=== PATIENT | male | born 1945 | race Caucasian/White ===

== ENCOUNTER 2019-08-30 09:52 | Emergency (ER) | payer MEDICARE, OTHER ==
[~2019-08-30] VITALS: Ht 180.3 cm; Wt 95.0 kg
[~2019-08-30 09:52] MED LIST: ALBU0.63 NEB; ASPI325T11 PO; BUDE10.2 IH; BUPR100T8 PO; CARB1DRO20 EACHEYE; CEPH-264 PO; CHOL200059 PO; GABA600T7 PO; GLIP5TAB22 PO; HYDR12.575 PO; PRED20TA PO; SIMV80TA17 PO; TAMS0.4C97 PO; TIOT18CA IH; VALS80TA3 PO; ZOLP10TA4 PO
--- NOTE | 2019-08-30 10:23 | EKG ---
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
[2019-08-30 10:36] LABS: BASO # 0.1 x10^3/uL (0.0-0.2); BASO % 1 % (0-3); EOS # 0.4 x10^3/uL (0.0-0.7); EOS % 5 % (0-3); HEMATOCRIT 41.3 % (39.0-53.0); HEMOGLOBIN 13.8 g/dL (13.0-17.5); LYMPH % 11 % (24-48); MEAN CORPUSCULAR HEMOGLOBIN 28 pg (25-35); MEAN CORPUSCULAR HGB CONC 33 g/dL (31-37); MEAN CORPUSCULAR VOLUME 83 fL (79-100); MONO % 11 % (0-9); NEUT % 73 % (31-73); PLATELET COUNT 258 x10^3/uL (140-400); RED BLOOD COUNT 4.96 x10^6/uL (4.30-5.70); RED CELL DISTRIBUTION WIDTH 14.8 % (11.5-14.5); WHITE BLOOD COUNT 9.5 x10^3/uL (4.0-11.0)
[2019-08-30] MEDS ORDERED: IPRATRPIUM/ALBUTEROL 0.5/2.5MG 3 ML NEBU. NEB ONE (10:45)
[2019-08-30] MEDS ORDERED: DEXAMETHASONE SOD PHOS 4 MG/ML VIAL IVP ONE (10:45)
[2019-08-30 10:46] LABS: PROTHROMBIN TIME PATIENT 14.5 SEC (11.7-14.0)
[2019-08-30 11:02] LABS: CALCIUM 9.2 mg/dL (8.5-10.1); CREATININE 1.1 mg/dL (0.7-1.3); GFR 65.8; POTASSIUM 4.3 mmol/L (3.5-5.1)
[2019-08-30 11:06] LABS: ALBUMIN 3.3 g/dL (3.4-5.0); ALBUMIN/GLOBULIN RATIO 0.9 (1.0-1.7); MAGNESIUM 1.7 mg/dL (1.8-2.4); TOTAL BILIRUBIN 1.5 mg/dL (0.2-1.0)
--- NOTE | 2019-08-30 11:12 | RAD ---
Chest, PA and Lateral: Technique: PA and lateral views of the chest were obtained. History: Cough. Comparison: 08/05/2019. Findings: The heart and pulmonary vasculature appear within normal limits. Median sternotomy wires identified.. Mild airspace opacity identified in the right middle lobe of the lung likely atelectasis or infiltrates.. Impression: Mild airspace opacity identified in the right middle lobe lung likely atelectasis or infiltrate. Follow-up to resolution.. Electronically signed by: Meño Flores MD (08/30/2019 11:09 AM) [id number]
--- NOTE | 2019-08-30 11:20 | PHYS DOC ---
Past Medical History Past Medical History: CAD, COPD, Diabetes-Type II, High Cholesterol, Heart Disease, Hypertension, [place] Past Surgical History: Coronary Bypass Surgery, Other Additional Past Surgical Histo: CABG X4 w/ Aortic Valve Replacement 2010 Smoking Status: Former Smoker Additional Information: quit smoking 5 years ago Alcohol Use: None Drug Use: None Adult General Chief Complaint Chief Complaint: SHORTNESS OF BREATH HPI HPI Patient is a 74 year old male with history of COPD who presents with cough and shortness of breath. His symptoms have worsened over the past few days. He is on 2L home oxygen and has increased oxygen to 2.5 L over the past few days due to worsening symptoms. Cough is sometimes productive of yellow or clear sputum. He also reports that he has had increased weakness over the past few days. He denies fevers, chills, chest pain, palpitations, nausea, or vomiting. He also denies calf pain or leg swelling. He originally began having symptoms in July. The cough and shortness of breath will intermittently get better, but never fully resolve. He has been hospitalized 2 times over the past month for these symptoms. He was recently hospitalized at [facility] in July and treated for COPD exacerbation. He has not been around any sick contacts or travelled recently. He received his flu vaccine this year. Review of Systems Review of Systems Constitutional: Denies fever or chills Eyes: Denies redness or eye pain HENT: Denies nasal congestion or sore throat Respiratory: Reports cough and shortness of breath Cardiovascular: Denies chest pain or palpitations GI: Denies abdominal pain, nausea, or vomiting : Denies dysuria or hematuria Musculoskeletal: Denies back pain, joint pain, and calf pain Integument: Denies rash or skin lesions Neurologic: Denies headache, focal weakness or sensory changes Complete systems were reviewed and found to be within normal limits, except as documented in this note. Family History Family History No pertinent family history. Current Medications Current Medications Current Medications Medications (Trade) Dose Ordered Sig/Magdalena Start Time Stop Time Status Last Admin Dose Admin Albuterol/ Ipratropium (Duoneb) 3 ml 1X ONCE 08/30/19 10:45 08/30/19 10:46 DC 08/30/19 12:15 3 ML Dexamethasone Sodium Phosphate (Decadron) 10 mg 1X ONCE 08/30/19 10:45 08/30/19 10:46 DC 08/30/19 10:56 10 MG Magnesium Chloride (Mag Delay) 64 mg 1X ONCE 08/30/19 12:00 08/30/19 12:01 DC 08/30/19 12:12 64 MG Allergies Allergies Allergies Coded Allergies Type Severity Reaction Last Updated Verified No Known Drug Allergies 08/05/19 No Physical Exam Physical Exam Constitutional: Well developed, well nourished, no acute distress, non-toxic appearance HENT: Normocephalic, atraumatic Eyes: EOMI, conjunctiva normal, no discharge Neck: Normal range of motion, supple Cardiovascular: Heart rate normal, regular rhythm Lungs & Thorax: Diminished lung sounds, Wheezing of bilateral lung sweet Abdomen: Soft, no tenderness Skin: Warm, dry, no erythema, no rash Extremities: No tenderness, ROM intact, no edema, no calf tenderness Neurologic: Alert and oriented X 3, normal motor function, normal sensory function, no focal deficits noted Psychologic: Affect normal, judgment normal Current Patient Data Vital Signs Vital Signs Date Time Temp Pulse Resp B/P (MAP) Pulse Ox O2 Delivery O2 Flow Rate FiO2 08/30/19 13:34 74 20 130/76 (94) 95 Nasal Cannula 2.0 08/30/19 10:01 98.3 98.3 Lab Values Laboratory Tests Test 08/30/19 10:15 08/30/19 11:02 White Blood Count 9.5 x10^3/uL (4.0-11.0) Red Blood Count 4.96 x10^6/uL (4.30-5.70) Hemoglobin 13.8 g/dL (13.0-17.5) Hematocrit 41.3 % (39.0-53.0) Mean Corpuscular Volume 83 fL (79-100) Mean Corpuscular Hemoglobin 28 pg (25-35) Mean Corpuscular Hemoglobin Concent 33 g/dL (31-37) Red Cell Distribution Width 14.8 % (11.5-14.5) H Platelet Count 258 x10^3/uL (140-400) Neutrophils (%) (Auto) 73 % (31-73) Lymphocytes (%) (Auto) 11 % (24-48) L Monocytes (%) (Auto) 11 % (0-9) H Eosinophils (%) (Auto) 5 % (0-3) H Basophils (%) (Auto) 1 % (0-3) Neutrophils # (Auto) 7.0 x10^3/uL (1.8-7.7) Lymphocytes # (Auto) 1.0 x10^3/uL (1.0-4.8) Monocytes # (Auto) 1.0 x10^3/uL (0.0-1.1) Eosinophils # (Auto) 0.4 x10^3/uL (0.0-0.7) Basophils # (Auto) 0.1 x10^3/uL (0.0-0.2) Prothrombin Time 14.5 SEC (11.7-14.0) H Prothrombin Time INR 1.2 (0.8-1.1) H Activated Partial Thromboplast Time 34 SEC (24-38) Sodium Level 136 mmol/L (136-145) Potassium Level 4.3 mmol/L (3.5-5.1) Chloride Level 97 mmol/L (98-107) L Carbon Dioxide Level 29 mmol/L (21-32) Anion Gap 10 (6-14) Blood Urea Nitrogen 15 mg/dL (8-26) Creatinine 1.1 mg/dL (0.7-1.3) Estimated GFR (Cockcroft-Gault) 65.8 BUN/Creatinine Ratio 14 (6-20) Glucose Level 82 mg/dL (70-99) Lactic Acid Level 1.1 mmol/L (0.4-2.0) Calcium Level 9.2 mg/dL (8.5-10.1) Magnesium Level 1.7 mg/dL (1.8-2.4) L Total Bilirubin 1.5 mg/dL (0.2-1.0) H Aspartate Amino Transferase (AST) 13 U/L (15-37) L Alanine Aminotransferase (ALT) 17 U/L (16-63) Alkaline Phosphatase 92 U/L (46-116) Creatine Kinase 40 U/L (39-308) Creatine Kinase MB (Mass) < 0.5 ng/mL (0.0-3.6) Creatine Kinase MB Relative Index % (0-4) Troponin I Quantitative < 0.017 ng/mL (0.000-0.055) XB-Jnx-U-Type Natriuretic Peptide 474 pg/mL (0-124) H Total Protein 7.0 g/dL (6.4-8.2) Albumin 3.3 g/dL (3.4-5.0) L Albumin/Globulin Ratio 0.9 (1.0-1.7) L Influenza Type A Antigen Negative (NEGATIVE) Influenza Type B Antigen Negative (NEGATIVE) Laboratory Tests 08/30/19 10:15 Laboratory Tests 08/30/19 10:15 EKG EKG @1005 EKG showed atrial flutter vs. sinus rhythm with heart rate of 79 bpm, difficult to evaluate due to artifact. No acute ST segment changes. @1250 showed sinus rhythm with heart rate of 75 bpm with no acute ST segment changes Radiology/Procedures Radiology/Procedures CHEST PA & LATERAL Chest, PA and Lateral: Technique: PA and lateral views of the chest were obtained. History: Cough. Comparison: 08/05/2019. Findings: The heart and pulmonary vasculature appear within normal limits. Median sternotomy wires identified.. Mild airspace opacity identified in the right middle lobe of the lung likely atelectasis or infiltrates.. Impression: Mild airspace opacity identified in the right middle lobe lung likely atelectasis or infiltrate. Follow-up to resolution. Electronically signed by: Meño Flores MD (08/30/2019 11:09 AM) [id number] Course & Med Decision Making Course & Med Decision Making Pertinent Labs and Imaging studies reviewed. (See chart for details) Patient is a 74 year old male presenting to the ED with cough and shortness of breath that he has had for about a month, but has been worsening over the past few days. He has a history of COPD. EKG @1005 showed atrial flutter vs. sinus rhythm with heart of 79 bpm, unable to distinguish due to artifact. CXR performed and showed mild airspace opacity in the right middle lobe lung likely atelectasis or infiltrate. Patient did not have leukocytosis. Troponin was within normal limits, BNP was 474, lactic acid 1.1. Mg was 1.7 and was replaced. Flu was negative. Dexamethasone and Duoneb given in the ED. Repeat EKG after DuoNeb @1250 showed sinus rhythm with heart rate of 75 bpm with no acute ST segment changes. Spacer for home albuterol rescue inhaler was provided. Prescription for steroid and Guaifenesin with codeine was given. Patient stable for discharge with outpatient follow-up with PCP/Pulmonology. Discussed findings and plan with patient and family, who acknowledge understanding and agreement. Pulmonology referral was provided. Dragon Disclaimer Dragon Disclaimer This electronic medical record was generated, in whole or in part, using a voice recognition dictation system. Departure Departure Impression: Primary Impression: COPD exacerbation Disposition: 01 HOME, SELF-CARE Condition: STABLE Referrals: NO PCP (PCP) ESTUARDO ALMEIDA MD Patient Instructions: Chronic Obstructive Pulmonary Disease Exacerbation, Mdep-mq-Ihrp Scripts Guaifenesin/Codeine Phosphate (Codeine-Guaifen 10-100 mg/5 ml) 120 Ml Liquid 10 ML PO Q8HRS PRN for COUGH, #200 LIQUID Prov: YAZMIN JULES DO 08/30/19 Prednisone (PREDNISONE) 20 Mg Tablet 2 TAB PO DAILY, #8 TAB Start this prescription tomorrow, Thu08/31/19 Prov: YAZMIN JULES DO 08/30/19 YAZMIN JULES DO Aug 30, 2019 11:19
[2019-08-30 11:26] LABS: CREATINE KINASE 40 U/L (39-308)
[2019-08-30] MEDS ORDERED: MAGNESIUM CHLORIDE ER 64 MG TABLET.ER PO ONE (12:00)
[2019-08-30 12:02] LABS: INFLUENZA A PATIENT NEGATIVE (NEGATIVE); INFLUENZA B PATIENT NEGATIVE (NEGATIVE)
[2019-08-30] MEDS ORDERED: PRED20TA PO (12:59)
[2019-08-30] MEDS ORDERED: GUAI120L35 PO (12:59)
--- NOTE | 2019-08-30 13:20 | EKG ---
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
[2019-08-30 13:34] VITALS: BP 130/76
== END 2019-08-30 13:40 | disposition home or self-care (01) ==
LOC: ER 09:52
DX: J44.1 Chronic obstructive pulmonary disease with (acute) exacerbation (principal); E78.00 Pure hypercholesterolemia, unspecified; I11.9 Hypertensive heart disease without heart failure; I25.10 Atherosclerotic heart disease of native coronary artery without angina pectoris; I25.2 Old myocardial infarction; Z87.891 Personal history of nicotine dependence; Z95.1 Presence of aortocoronary bypass graft
CPT/HCPCS: 36415; 71046; 80053; 82553; 83605; 83735; 83880; 84484; 85025; 85610; 85730; 87804; 93005; 94640; 96374; 99285; J1100; J7620

== ENCOUNTER → 2019-09-06 | Outpatient (CLI) | payer MEDICARE ==
[2019-08-30 13:34] VITALS: BP 130/76
[~2019-09-06] MED LIST changes: +GUAI120L35 PO; +REGADENOSON 0.4 MG/5 ML DISP.SYRIN. IV ONE
--- NOTE | 2019-09-06 10:51 | CARD ---
MR#: [id number] Date of Study: 09/06/2019 Ordering Physician: EYAD BEAR, Referring Physician: EYAD BEAR Tech: Gavino Howard [facility] APPROVED REPORT EXAM: Two-dimensional and M-mode echocardiogram with Doppler and color Doppler. Other Information Quality : AverageHR: 83bpm Rhythm : Atrial Fibrillation INDICATION Arrhythmia Atrial Fibrillation CAD CABG 2D DIMENSIONS Left Atrium(2D)4.7 (1.6-4.0cm)IVSd1.4 (0.7-1.1cm) Aortic Root(2D)3.7 (2.0-3.7cm)LVDd3.8 (3.9-5.9cm) LVOT Diameter2.0 (1.8-2.4cm)PWd1.4 (0.7-1.1cm) LVDs2.9 (2.5-4.0cm)FS (%) 23.1 % SV29.0 mlLVEF(%)47.1 (>50%) Aortic Valve AoV Peak Xavi.239.5cm/sAoV VTI43.0cm AO Peak GR.23.0mmHgLVOT Peak Xavi.98.5cm/s AO Mean GR.12mmHgAVA (VMAX)1.33cm2 Mitral Valve MV E Peak Gr.14mmHgMV E Mean Gr.4mmHg Pulmonary Valve PV Peak Ywzglnvp635.3cm/s Tricuspid Valve TR P. Hebeebyd558sk/sRAP [id number] TR Peak Gr.74kmUuWAIP44zpXk LEFT VENTRICLE The left ventricle is normal size. There is mild to moderate concentric left ventricular hypertrophy. The systolic function is low normal. The Ejection Fraction is 50%. Septal motion suggestive of condu ction defect. Mild global hypokinesis. Tissue Doppler imaging reveals moderate left ventricular diast olic dysfunction. RIGHT VENTRICLE The right ventricle is normal size. There is normal right ventricular wall thickness. The right ventr icular systolic function is normal. ATRIA The left atrium size is normal. The right atrium size is normal. The interatrial septum is intact wit h no evidence for an atrial septal defect or patent foramen ovale as noted on 2-D or Doppler imaging. AORTIC VALVE The aortic valve is moderately sclerotic. No aortic regurgitation is present. There is mild valvular aortic stenosis. Calculated aortic valve area is 1.3 cm2 with maximum pressure gradient of 23 mmHg an d mean pressure gradient of 12 mmHg. There is no aortic valvular vegetation. MITRAL VALVE The mitral valve is normal in structure and function. There is no evidence of mitral valve prolapse. There is no mitral valve stenosis. Doppler and Color-flow revealed mild mitral regurgitation. TRICUSPID VALVE The tricuspid valve is normal in structure and function. Doppler and Color Flow revealed mild tricusp id regurgitation with PAP of 32 mmHg. There is no tricuspid valve prolapse or vegetation. There is no tricuspid valve stenosis. PULMONIC VALVE There is no pulmonic valvular regurgitation. There is no pulmonic valvular stenosis. GREAT VESSELS The aortic root is normal in size. The ascending aorta is normal in size. The IVC is normal in size a nd collapses >50% with inspiration. PERICARDIAL EFFUSION There is no pleural effusion. There is no evidence of significant pericardial effusion. Critical Notification Critical Value: No <Conclusion> The systolic function is low normal. The Ejection Fraction is 50%. Septal motion suggestive of conduction defect. Mild global hypokinesis. There is mild valvular aortic stenosis. Calculated aortic valve area is 1.3 cm2 with maximum pressur e gradient of 23 mmHg and mean pressure gradient of 12 mmHg. Signed by : Yoni Ponce, Electronically Approved : 09/06/2019 10:51:27
--- NOTE | 2019-09-06 15:07 | RAD ---
MR#: [id number] Date of Study: 09/06/2019 Ordering Physician: SIN WALKER, Referring Physician: [place] Tech: FRANKLNI Payton APPROVED REPORT Test Type: Pharmacological Stress Nurse/Tech: ROBERT JACOB Test Indications: CARDIAC ARRYTHMIA Cardiac History: See Electronic Medical , CABG, HTN, AFIB Medications: See Electronic Medical Record Medical History: See Electronic Medical Record Resting ECG: AFIB Resting Heart Rate: 84 bpm Resting Blood Pressure: 134/59mmHg Pretest Chest Pain: No chest pain Nurse/Tech Notes IRREGULAR RATE, LUNGS DIMINISHED @ BASES, COUGH + Consent: The procedure was explained to the patient in lay terms. Informed consent was witnessed. Hamzah eout was entered into [employer]. History and Stress Test performed by FRANKLIN Payton Pharm. Details Pharmacologic stress testing was performed using 0.4mg per 5ml of regadenoson given intravenously ove r 7-10 seconds. Stress Symptoms PT C/O OF "SLIGHT HEAVINESS IN HIS CHEST", WHEN MED INJECTED INITIALLY, SENSATION SUBSIDED AFTER A CO UPLE OF MINUTES. POST EXERCISE Reason for Termination: Infusion complete Max HR: 102 bpm Max Blood Pressure: 121/53mmHg Blood Pressure response to exercise: Normal blood pressure response during stress. Heart Rate response to exercise: NORMAL HEART RATE RESPONSE DURING STRESS Chest Pain: . DESCRIBED "HEAVINESS", NOT PAIN Arrhythmia: Yes. AFIB/ PVC'S NOTED ST Change: No. INTERPRETATION Stress EKG Conclusion: No evidence of stress induced EKG changes. Imaging Protocol IMAGE PROTOCOL: Rest Tc-99m/stress Tc-99m 1 day Rest: Stress: Viability: Radiopharm.Tc99m EeqimugffZm06a Sestamibi Rekx78oNl 31mCi Duration 15min. 12min. Img Date 09/06/2019 09/06/2019 Inj-Img [id number]. 60min. Rest Admin Site:IV - Right AntecubitalAdministrator:RT Lashanda (R)(N) Stress Admin Site: IV - Right AntecubitalAdministrator: Yaz Parra, RT (R)(N) STRESS DATA End Diast. Vol.116.0mlLVEDV index BSA53.0ml End Syst. Vol.53.0mlLVESV index BSA24.0ml Myocardial Hqgh710.0gEject. Ocitkkge14.0% Stress Scores Regional WT2.00Summed WT19.00 Regional WM0.00Summed WM19.00 LV Perfusion Moderate to large sized, predominantly FIXED basal to distal inferior and inferolateral wall suggesti ve of prior infarct without ongoing ischemia. Wall Motion Mild inferolateral hypokinesis. LV Perf. Quant 17 Seg. SSS11.00 17 Seg. SRS13.00 17 Seg. SDS0.00 Stress Defect Extent (% LAD)14.40Rest Defect Extent (% LAD)19.40Rev. Defect Extent (% LAD)0.00 Stress Defect Extent (% LCX) 35.00Rest Defect Extent (% LCX)33.80Rev. Defect Extent (% LCX)0.00 Stress Defect Extent (% RCA)6.70Rest Defect Extent (% RCA)23.30Rev. Defect Extent (% RCA)0.00 Stress Defect Extent (% STEVAN)20.40Rest Defect Extent (% STEVAN)26.10Rev. Defect Extent (% STEVAN)0.00 Other Information Quality:Average Risk Assessment: Moderate Risk Conclusion 1. No evidence of stress induced EKG changes. 2. 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 3. Mild LV dysfunction with EF of 50% 4. Moderate risk study Signed by : Yoni Ponce, Electronically Approved : 09/06/2019 15:06:25
== END | disposition home or self-care (01) ==
LOC: NM 08:51
PROVIDERS: ATTEND Internal Medicine Cardiovascular Disease
DX: I08.3 Combined rheumatic disorders of mitral, aortic and tricuspid valves (principal); I48.91 Unspecified atrial fibrillation; I10 Essential (primary) hypertension; I25.810 Atherosclerosis of coronary artery bypass graft(s) without angina pectoris; Z95.1 Presence of aortocoronary bypass graft
CPT/HCPCS: 78452; 93017; 93306; A9500; J2785

== ENCOUNTER 2019-10-02 03:57 | Inpatient (IN) | payer MEDICARE ==
[2019-10-02] VITALS (20 sets, daily range): BP systolic 66–126; BP diastolic 43–69
[~2019-10-02] VITALS: Ht 182.9 cm; Wt 87.9 kg
[~2019-10-02 03:57] MED LIST changes: +AMOX1TAB58 PO; +DOCU-153 PO; +LACT1CAP19 PO; +PRED50TA PO; +PROP80CA3 PO; -REGADENOSON 0.4 MG/5 ML DISP.SYRIN. IV ONE
[2019-10-02] MEDS ORDERED: MIDAZOLAM HCL 50 MG in IV NORMAL SALINE 50ML 50 ML IV ONE (04:30)
[2019-10-02] MEDS ORDERED: VANCOMYCIN PER PHARMACY MC ONE (04:45)
[2019-10-02] MEDS ORDERED: ACETAMINOPHEN 650 MG SUPP.RECT. PR ONE (05:00)
[2019-10-02] MEDS ORDERED: IV NORMAL SALINE 1000ML BAG 1,000 ML IV SCH (05:00)
[2019-10-02] MEDS ORDERED: PIPERACILLIN/TAZOBACTAM 4.5 GM in IV NORMAL SALINE 100ML 100 ML IV ONE (05:00)
[2019-10-02] MEDS ORDERED: dilTIAZem IV PUSH 25 MG/5 ML VIAL IVP ONE (05:00)
[2019-10-02] MEDS ORDERED: dilTIAZem INJ 125 MG in IV NORMAL SALINE 100ML 100 ML IV ONE (05:00)
--- NOTE | 2019-10-02 05:07 | PHYS DOC ---
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 Was curriculum assistant principal a member of the P: No If suspected infection: Yes Central Line Indications: Monitor CVP Maximal sterile barriers used: Mask, Sterile gown, Sterile gloves, Large sterile drape, Cap Skin Preperation: (Check all: Chlorhexidine gluconate Was skin prep dry at time of s: Yes Patient is less than 2 months: No Patient has documented/known a: No Facility restrictions/safety c: No Insertion Site: Jugular Antimicrobial catheter used?: No Central Line catheter type: Non-tunneled Did this insertion attempt res: No Adult General Chief Complaint Chief Complaint: DYSPNEA/RESPIRATOY DISTRESS HPI HPI 74-year-old male presents to the emergency department via EMS with severe respiratory distress. Patient has underlying history of hypertension, hyperlipidemia, diabetes, COPD. Patient was seen at approximately 10 days ago, tested positive for coronavirus, patient was discharged on Thursday. He presents today with severe respiratory distress, initial saturations in the 50s, patient was being bagged per via BVM upon arrival. Unable to get IV established, saturations in the 60s to 70s upon arrival, patient agitated. Heart rate in the 170s. Patient febrile 100.5. Patient unable to provide history. Upon arrival, patient being bagged, not forming complete sentences, it was milton cted at that time given hypoxia and agitation patient was electively intubated. See intubation note Review of Systems Review of Systems Constitutional: Fevers Respiratory: Cough shortness of breath Cardiovascular: No additional information not addressed in HPI [] All other systems were reviewed and found to be within normal limits, except as documented in this note. Current Medications Current Medications Current Medications Medications (Trade) Dose Ordered Sig/Magdalena Start Time Stop Time Status Last Admin Dose Admin Acetaminophen (Tylenol Supp) 650 mg 1X ONCE 10/02/19 05:00 10/02/19 05:01 DC 10/02/19 05:15 650 MG Diltiazem HCl (Cardizem Iv Push) 10 mg 1X ONCE 10/02/19 05:00 10/02/19 05:01 DC 10/02/19 05:05 10 MG Diltiazem HCl 125 mg/Sodium Chloride 125 ml @ 5 mls/hr 1X ONCE 10/02/19 05:00 10/03/19 05:59 10/02/19 05:09 5 MLS/HR Heparin Sodium/ Dextrose 250 ml @ 0 mls/hr CONT PRN 10/02/19 05:45 Levofloxacin/ Dextrose 150 ml @ 100 mls/hr 1X ONCE 10/02/19 05:00 10/02/19 06:29 Midazolam HCl 50 mg/Sodium Chloride 50 ml @ 0 mls/hr 1X ONCE 10/02/19 04:30 10/02/19 04:31 DC 10/02/19 04:49 1 MLS/HR Norepinephrine Bitartrate 8 mg/ Dextrose 258 ml @ 0 mls/hr CONT PRN 10/02/19 05:00 Piperacillin Sod/ Tazobactam Sod 4.5 gm/Sodium Chloride 100 ml @ 200 mls/hr 1X ONCE 10/02/19 05:00 10/02/19 05:29 DC 10/02/19 05:25 200 MLS/HR Sodium Chloride 1,000 ml @ 2,340 mls/hr Q26M 10/02/19 05:00 10/02/19 06:00 10/02/19 05:15 2,340 MLS/HR Vancomycin HCl (Vanco Per Pharmacy) 1 each 1X ONCE 10/02/19 04:45 10/02/19 04:46 UNV Vancomycin HCl 1.25 gm/Sodium Chloride 250 ml @ 166.667 mls/hr 1X ONCE 10/02/19 05:30 10/02/19 06:59 Cancel Vancomycin HCl 2 gm/Sodium Chloride 500 ml @ 250 mls/hr 1X ONCE 10/02/19 05:30 10/02/19 07:29 Allergies Allergies Allergies Coded Allergies Type Severity Reaction Last Updated Verified No Known Drug Allergies 08/05/19 No Physical Exam Physical Exam Constitutional: Patient being bagged, severe respiratory distress, unable to speak in complete sentences HENT: Normocephalic, atraumatic, bilateral external ears normal, oropharynx mois t, no oral exudates, nose normal. [] Eyes: PERRLA, EOMI, conjunctiva normal, no discharge. [] Cardiovascular: Sinus tachycardia Lungs & Thorax: Decreased breath sounds bilaterally, tachypnea Abdomen: Bowel sounds normal, soft, no tenderness, no masses, no pulsatile masses. [] Skin: Warm, dry, no erythema, no rash. [] Back: No tenderness, no CVA tenderness. [] Extremities: No tenderness, no edema. [] Neurologic: Alert and oriented X 3, normal motor function, normal sensory function, no focal deficits noted. [] Psychologic: Anxious Current Patient Data Vital Signs Vital Signs Date Time Temp Pulse Resp B/P (MAP) Pulse Ox O2 Delivery O2 Flow Rate FiO2 10/02/19 05:05 144 10/02/19 04:53 100.5 30 146/88 (107) 90 Bag Valve Mask 15.0 100.5 Lab Values Laboratory Tests Test 10/02/19 04:40 10/02/19 04:49 Prothrombin Time 14.9 SEC (11.7-14.0) H Prothrombin Time INR 1.2 (0.8-1.1) H Fibrinogen 542 mg/dL (200-440) H Sodium Level 135 mmol/L (136-145) L Potassium Level 4.1 mmol/L (3.5-5.1) Chloride Level 97 mmol/L (98-107) L Carbon Dioxide Level 25 mmol/L (21-32) Anion Gap 13 (6-14) Blood Urea Nitrogen 35 mg/dL (8-26) H Creatinine 1.1 mg/dL (0.7-1.3) Estimated GFR (Cockcroft-Gault) 65.8 BUN/Creatinine Ratio 32 (6-20) H Glucose Level 110 mg/dL (70-99) H Lactic Acid Level 3.1 mmol/L (0.4-2.0) H Calcium Level 8.6 mg/dL (8.5-10.1) Total Bilirubin 1.3 mg/dL (0.2-1.0) H Aspartate Amino Transferase (AST) 201 U/L (15-37) H Alanine Aminotransferase (ALT) 143 U/L (16-63) H Alkaline Phosphatase 146 U/L (46-116) H Troponin I Quantitative 0.338 ng/mL (0.000-0.055) Total Protein 5.7 g/dL (6.4-8.2) L Albumin 2.4 g/dL (3.4-5.0) L Albumin/Globulin Ratio 0.7 (1.0-1.7) L O2 Saturation 95 % (92-99) Arterial Blood pH 7.21 (7.35-7.45) L Arterial Blood pH (Temp corrected) 7.20 Arterial Blood pCO2 at Patient Temp 54 mmHg (35-46) H Arterial Blood pCO2 (Temp correct) 56 mmHg Arterial Blood pO2 at Patient Temp 93 mmHg (65-108) Arterial Blood pO2 (Temp corrected) 99 mmHg Arterial Blood HCO3 21 mmol/L (21-28) Arterial Blood Base Excess -7 mmol/L (-3-3) L FiO2 100 Laboratory Tests 10/02/19 04:40 EKG EKG Sinus tachycardia, no evidence of ST elevation SD, PVCs appreciated, interpretation time 0 452 [] Radiology/Procedures Radiology/Procedures [facility] [address] [place] [address] IMAGING REPORT Signed PATIENT: DAPHNE YOUSSEF ACCOUNT: [id number] : 1945 LOCATION: ER AGE: 74 SEX: M EXAM STATUS: REG ER ORD. PHYSICIAN: ALEXANDR ZHANG MD REASON: evaluation and verify placement - PT IS COVID-19 POSITIVE PROPER PPE PROCEDURE: CHEST AP ONLY CHEST AP ONLY INDICATION: Cough. COMPARISON STUDY: 09/10/2019. FINDINGS: Life Support Devices: Endotracheal tube terminates 5 cm above the sarah. Left IJ central venous catheter terminates in the mid SVC. Enteric tube terminates in the stomach. Lungs: Normal lung volume. Diffuse bilateral heterogeneous opacities. Indistinct pulmonary vasculature. Pleura: No pleural effusion or pneumothorax. Heart and Mediastinum: Stable cardiomediastinal silhouette and great vessels. IMPRESSION: 1. Diffuse bilateral heterogeneous opacities, consistent with patient's history of infection. 2. Life support devices as above. Electronically signed by: Candido Dailey MD (10/02/2019 5:26 AM) [id number] DICTATED and SIGNED BY: CANDIDO DAILEY MD DATE: 10/02/19 0526 [] Course & Med Decision Making Course & Med Decision Making Pertinent Labs and Imaging studies reviewed. (See chart for details) [] 74-year-old male presents to the emergency department via EMS with severe respiratory distress. Patient has underlying history of hypertension, hyperlipidemia, diabetes, COPD. Patient was seen at approximately 10 days ago, tested positive for coronavirus, patient was discharged on Thursday. He presents today with severe respiratory distress, initial saturations in the 50s, patient was being bagged per via BVM upon arrival. Unable to get IV established, saturations in the 60s to 70s upon arrival, patient agitated. Heart rate in the 170s. Patient febrile 100.5. Patient unable to provide history. Upon arrival, patient being bagged, not forming complete sentences, it was elected at that time given hypoxia and agitation patient was electively intubated. See intubation note Laboratory values imaging reviewed AST 201, ALT 143, troponin point 338, lactic acid 3.1 Chest x-ray reveals diffuse bilateral opacities consistent with history of infection Low-dose heparin initiated secondary to patient's atrial fibrillation Antibiotics initiated with cultures obtained Cardizem 10 mg bolus, Cardizem drip initiated for rate control Current blood pressure 140/68 heart rate 120 Pulmonary consultation Patient will be admitted to the ICU Indication: Indication: Respiratory failure Consent: Unable to give consent due to emergent nature. Medications Used: see nursing note Procedure: The patient was placed in the appropriate position. Intubation was performed via glidescope, 7.5 cm at 24 at lip. Initial confirmation of placement included bilateral breath sounds, tube fogging, adequate chest rise, adequate pulse oximetry reading. A chest x-ray to verify correct placement of the tube showed appropriate tube position. The patient tolerated the procedure well. Complications: none. Dragon Disclaimer Dragon Disclaimer This electronic medical record was generated, in whole or in part, using a voice recognition dictation system. Departure Departure Impression: Primary Impression: Suspected 2019 novel coronavirus infection Additional Impressions: Acute respiratory failure Sepsis Disposition: ADMITTED INPATIENT Condition: CRITICAL Referrals: MICHAEL SMITH (PCP) Critical Care Time Critical care time was 40 minutes exclusive of procedures. Problem Qualifiers Additional Impressions: Acute respiratory failure Respiratory failure complication: hypoxia Qualified Codes: J96.01 - Acute respiratory failure with hypoxia Sepsis Sepsis type: sepsis due to unspecified organism Sepsis acute organ dysfunction status: with acute organ dysfunction Severe sepsis acute organ dysfunction type: acute respiratory failure Acute respiratory failure type: with hypoxia Severe sepsis shock status: without septic shock Qualified Codes: A41.9 - Sepsis, unspecified organism; R65.20 - Severe sepsis without septic shock; J96.01 - Acute respiratory failure with hypoxia ALEXANDR ZHANG MD Oct 02, 2019 05:07
[2019-10-02 05:15] LABS: CALCIUM 8.6 mg/dL (8.5-10.1); CREATININE 1.1 mg/dL (0.7-1.3); GFR 65.8; POTASSIUM 4.1 mmol/L (3.5-5.1)
--- NOTE | 2019-10-02 05:29 | RAD ---
CHEST AP ONLY INDICATION: Cough. COMPARISON STUDY: 09/10/2019. FINDINGS: Life Support Devices: Endotracheal tube terminates 5 cm above the sarah. Left IJ central venous catheter terminates in the mid SVC. Enteric tube terminates in the stomach. Lungs: Normal lung volume. Diffuse bilateral heterogeneous opacities. Indistinct pulmonary vasculature. Pleura: No pleural effusion or pneumothorax. Heart and Mediastinum: Stable cardiomediastinal silhouette and great vessels. IMPRESSION: 1. Diffuse bilateral heterogeneous opacities, consistent with patient's history of infection. 2. Life support devices as above. Electronically signed by: Lalo Dailey MD (10/02/2019 5:26 AM) [id number]
[2019-10-02 05:30] LABS: BASE EXCESS ABG -7 mmol/L (-3-3); CORRECTED PCO2 ABG 56 mmHg; CORRECTED PO2 ABG 99 mmHg; HCO3 ABG 21 mmol/L (21-28); SAT O2 ABG 95 % (92-99)
[2019-10-02 05:30] LABS: ALBUMIN 2.4 g/dL (3.4-5.0); ALBUMIN/GLOBULIN RATIO 0.7 (1.0-1.7); TOTAL BILIRUBIN 1.3 mg/dL (0.2-1.0); TOTAL PROTEIN 5.7 g/dL (6.4-8.2)
[2019-10-02] MEDS ORDERED: VANCOMYCIN 2 GM in IV NORMAL SALINE 500ML BAG 500 ML IV ONE (05:30)
[2019-10-02] MEDS ORDERED: VANCOMYCIN 1.25 GM in IV NORMAL SALINE 250ML 250 ML IV ONE (05:30)
[2019-10-02 05:31] LABS: FIO2 ABG 100; PCO2 ABG 54 mmHg (35-46); PO2 ABG 93 mmHg (65-108)
[2019-10-02 05:34] LABS: PROTHROMBIN TIME PATIENT 14.9 SEC (11.7-14.0)
[2019-10-02] MEDS ORDERED: HEPARIN 25,000UTS/250ML PREMIX 250 ML IV PRN (05:45)
[2019-10-02] MEDS ORDERED: MIDAZOLAM HCL/PF 5 MG/5 ML VIAL. NS ONE (06:15)
[2019-10-02] MEDS ORDERED: ONDANSETRON PF 4 MG/2 ML VIAL. IV PRN (06:15)
--- NOTE | 2019-10-02 06:17 | EKG ---
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
[2019-10-02] MEDS: VANCOMYCIN PER PHARMACY MC PRN ×2 (07:23→08:44)
[2019-10-02] MEDS ORDERED: MIDAZOLAM HCL 50 MG in IV NORMAL SALINE 50ML 50 ML IV PRN (07:30)
[2019-10-02] MEDS ORDERED: ANTI-COAG MONITOR BY PHARMACY. MC PRN (07:30)
[2019-10-02] MEDS: MIDAZOLAM HCL 50 MG in IV NORMAL SALINE 50ML 50 ML IV PRN ×5 (07:36→20:42)
--- NOTE | 2019-10-02 07:43 | PDOC1 ---
History and Physical Date of Admission Date of Admission DATE: 10/02/19 TIME: 07:42 History of Present Illness History of Present Illness Mr Molina is a 74 yo M w/ PMHx CAD s/p CABG, S/p AVR, HTN, HLD, DM2, COPD who was brought to ED from home via EMS where he lives with his with profound SOB. In ED in severe respiratory distress, initial saturations in the 50s, patient was being bagged per via BVM upon arrival. Unable to get IV established, saturations in the 60s to 70s upon arrival, patient agitated. Heart rate in the 170s. Patient febrile 100.5. Patient unable to provide history due to his distress. Found in Afib with RVR, started on cardizem GTT, he was profoundly hypoxica and was emergently intubated in ED with PEEP of 10, 100% FiO2 required due to saturations in the 80s. He was seen and treated at [facility] for COPD exacerbation, found with SARS-CoV-2 (COVID 19) positive, was discharged home into the care of his this week on quarantine. She has noted he has been very weak and not able to move much at home since discharge earlier this week. Per his , John, he is a DNR. CXR showed bilateral infiltrate and pleural effusion. ET tube is in good position. ABG pH 7.21, pCO2 of 54, pO2 of 99 on 100% FiO2. Sodium 135, potassium 4.1, chloride 97, CO2 of 25, glucose 110. Lactic acid 3.1, AST 201, ALT 143, alkaline phosphatase 146. Troponin 0.338. Procalcitonin 16.3. INR 1.2. Past Medical History Pulmonary: Bronchitis, COPD Musculoskeletal: Osteoarthritis Past Surgical History Past Surgical History: CABG, Other Family History Family History: Hypertension Social History Smoke: No ALCOHOL: none Drugs: None Current Problem List Problem List Problems Medical Problems: (1) Sepsis Status: Acute (2) Suspected 2019 novel coronavirus infection Status: Acute Current Medications Current Medications Current Medications Midazolam HCl 50 mg/Sodium Chloride 50 ml @ 0 mls/hr 1X ONCE IV Last administered on 10/02/19at 04:49; Start 10/02/19 at 04:30; Stop 10/02/19 at 04:31; Status DC Sodium Chloride 1,000 ml @ 2,340 mls/hr Q26M IV Last administered on 10/02/19at 05:15; Start 10/02/19 at 05:00; Stop 10/02/19 at 06:00; Status DC Piperacillin Sod/ Tazobactam Sod 4.5 gm/Sodium Chloride 100 ml @ 200 mls/hr 1X ONCE IV Last administered on 10/02/19at 05:25; Start 10/02/19 at 05:00; Stop 10/02/19 at 05:29; Status DC Vancomycin HCl (Vanco Per Pharmacy) 1 each 1X ONCE MC Last administered on 10/02/19at 04:45; Start 10/02/19 at 04:45; Stop 10/02/19 at 07:09; Status DC Norepinephrine Bitartrate 8 mg/ Dextrose 258 ml @ 0 mls/hr CONT PRN IV PER PROTOCOL; Start 10/02/19 at 05:00 Levofloxacin/ Dextrose 150 ml @ 100 mls/hr 1X ONCE IV Last administered on 10/02/19at 06:07; Start 10/02/19 at 05:00; Stop 10/02/19 at 06:29; Status DC Diltiazem HCl (Cardizem Iv Push) 10 mg 1X ONCE IVP Last administered on 10/02/19at 05:05; Start 10/02/19 at 05:00; Stop 10/02/19 at 05:01; Status DC Diltiazem HCl 125 mg/Sodium Chloride 125 ml @ 5 mls/hr 1X ONCE IV Last administered on 10/02/19at 05:09; Start 10/02/19 at 05:00; Stop 10/03/19 at 05:59 Acetaminophen (Tylenol Supp) 650 mg 1X ONCE [place] Last administered on 10/02/19at 05:15; Start 10/02/19 at 05:00; Stop 10/02/19 at 05:01; Status DC Vancomycin HCl 1.25 gm/Sodium Chloride 250 ml @ 166.667 mls/hr 1X ONCE IV ; Start 10/02/19 at 05:30; Stop 10/02/19 at 06:59; Status Cancel Vancomycin HCl 2 gm/Sodium Chloride 500 ml @ 250 mls/hr 1X ONCE IV Last administered on 10/02/19at 06:45; Start 10/02/19 at 05:30; Stop 10/02/19 at 07:29; Status DC Heparin Sodium/ Dextrose 250 ml @ 0 mls/hr CONT PRN IV PER PROTOCOL; Start at 05:45 Midazolam HCl (Versed) 5 mg 1X ONCE NS ; Start 10/02/19 at 06:15; Stop 10/02/19 at 06:16; Status DC Ondansetron HCl (Zofran) 4 mg PRN Q8HRS PRN IV NAUSEA/VOMITING; Start 10/02/19 at 06:15; Stop 10/03/19 at 06:14 Albuterol/ Ipratropium (Duoneb) 3 ml RTQID NEB ; Start 10/02/19 at 08:00; Stop 10/02/19 at 07:23; Status DC Vancomycin HCl 1.5 gm/Sodium Chloride 500 ml @ 250 mls/hr Q12H IV ; Start 10/02/19 at 19:00 Vancomycin HCl (Vancomycin Trough Level) 1 each 1X ONCE MC ; Start 10/03/19 at 18:30; Stop 10/03/19 at 18:31 Info (Anti-Coagulation Monitoring By Pharmacy) 1 each PRN DAILY PRN MC SEE COMMENTS Last administered on 10/02/19at 07:22; Start 10/02/19 at 07:30 Vancomycin HCl (Vanco Per Pharmacy) 1 each PRN DAILY PRN MC SEE COMMENTS Last administered on 10/02/19at 07:23; Start 10/02/19 at 07:30 Ipratropium [place] (Atrovent) 0.5 mg Q4HRS NEB ; Start 10/02/19 at 08:00 Pantoprazole Sodium (PROTONIX VIAL for IV PUSH) 40 mg DAILYAC IVP ; Start 10/02/19 at 07:30 Midazolam HCl 50 mg/Sodium Chloride 50 ml @ 1 mls/hr CONT PRN IV SEE I/O RECORD Last administered on 10/02/19at 07:36; Start 10/02/19 at 07:30 Fentanyl Citrate 30 ml @ 0 mls/hr CONT PRN IV SEE PROTOCOL; Start 10/02/19 at 07:30 Midazolam HCl 50 mg/Sodium Chloride 50 ml @ 0 mls/hr CONT PRN IV SEE PROTOCOL; Start 10/02/19 at 07:30; Status UNV Active Scripts Active Prednisone 50 Mg Tablet 1 Tab PO DAILY 5 Days Augmentin 500-125 Tablet (Amoxicillin/Potassium Clav) 1 Each Tablet 1 Tab PO BID 10 Days Culturelle (Lactobacillus Rhamnosus Gg) 1 Each Cap.sprink 1 Cap PO BID 30 Days Dok (Docusate Sodium) 100 Mg Capsule 100 Mg PO PRN BID PRN 30 Days Codeine-Guaifen 10-100 mg/5 ml (Guaifenesin/Codeine Phosphate) 120 Ml Liquid 10 Ml PO Q8HRS PRN Reported Bupropion Hcl Sr (Bupropion Hcl) 100 Mg Tablet.er 150 Mg PO BID Propranolol Hcl 80 Mg Cap.sa.24h 100 Mg PO DAILY Flomax (Tamsulosin Hcl) 0.4 Mg Cap.er.24h 1 Cap PO DAILY Zolpidem Tartrate 10 Mg Tablet 10 Mg PO QHS Diovan (Valsartan) 80 Mg Tablet 80 Mg PO DAILY Simvastatin 80 Mg Tablet 1 Tab PO QHS 30 Days Hydrochlorothiazide Capsule (Hydrochlorothiazide) 12.5 Mg Capsule 12.5 Mg PO DAILY Glipizide Er (Glipizide) 5 Mg Tab.er.24 1 Tab PO DAILY Gabapentin 600 Mg Tablet 600 Mg PO TID Vitamin D-3 (Cholecalciferol (Vitamin D3)) 2,000 Unit Tablet 2,000 Unit PO DAILY Thera Tears (Carboxymethylcellulose Sodium) 1 Each Droperette 2 Drop EACHEYE QID 30 Days Symbicort 160-4.5 Mcg Inhaler (Budesonide/Formoterol Fumarate) 10.2 Gm Hfa.aer.ad 2 Puff IH BID Aspirin Ec (Aspirin) 325 Mg Tablet.dr 1 Tab PO DAILY Albuterol Sulfate Neb Soln (Albuterol Sulfate) 0.63 Mg/3 Ml Vial.neb 0.63 Mg NEB PRN Q6HRS PRN Allergies Allergies: Coded Allergies: No Known Drug Allergies (Unverified , 08/05/19) ROS Review of System Unable to obtain due to intubation and sedation Physical Exam General: moderate distress HEENT: Atraumatic, PERRLA, EOMI, Mucous membr. moist/pink Lungs: Other (Coarse rhonchi bilaterally) Heart: irregularly irregular Abdomen: Normal bowel sounds, Soft, No tenderness, No hepatosplenomegaly, No masses Rectal Exam: not examined Extremities: No clubbing, No cyanosis, No edema, Normal pulses, No tenderness/ swelling Skin: No rashes, No breakdown, No significant lesion Neuro: Normal tone, Reflexes 2+ Psych/Mental Status: Other (Sedated) Vitals Vitals Vital Signs Date Time Temp Pulse Resp B/P (MAP) Pulse Ox O2 Delivery O2 Flow Rate FiO2 10/02/19 06:50 108 134/72 (92) 10/02/19 04:53 100.5 30 90 Bag Valve Mask 15.0 100.5 Labs Labs Laboratory Tests Test 10/02/19 04:40 10/02/19 04:49 Prothrombin Time 14.9 SEC (11.7-14.0) Prothromb Time International Ratio 1.2 (0.8-1.1) Fibrinogen 542 mg/dL (200-440) Sodium Level 135 mmol/L (136-145) Potassium Level 4.1 mmol/L (3.5-5.1) Chloride Level 97 mmol/L (98-107) Carbon Dioxide Level 25 mmol/L (21-32) Anion Gap 13 (6-14) Blood Urea Nitrogen 35 mg/dL (8-26) Creatinine 1.1 mg/dL (0.7-1.3) Estimated GFR (Cockcroft-Gault) 65.8 BUN/Creatinine Ratio 32 (6-20) Glucose Level 110 mg/dL (70-99) Lactic Acid Level 3.1 mmol/L (0.4-2.0) Calcium Level 8.6 mg/dL (8.5-10.1) Total Bilirubin 1.3 mg/dL (0.2-1.0) Aspartate Amino Transf (AST/SGOT) 201 U/L (15-37) Alanine Aminotransferase (ALT/SGPT) 143 U/L (16-63) Alkaline Phosphatase 146 U/L (46-116) Troponin I Quantitative 0.338 ng/mL (0.000-0.055) Total Protein 5.7 g/dL (6.4-8.2) Albumin 2.4 g/dL (3.4-5.0) Albumin/Globulin Ratio 0.7 (1.0-1.7) Procalcitonin 16.36 ng/mL (0.00-0.10) O2 Saturation 95 % (92-99) Arterial Blood pH 7.21 (7.35-7.45) Arterial Blood pH (Temp corrected) 7.20 Arterial Blood pCO2 at Patient Temp 54 mmHg (35-46) Arterial Blood pCO2 (Temp correct) 56 mmHg Arterial Blood pO2 at Patient Temp 93 mmHg (65-108) Arterial Blood pO2 (Temp corrected) 99 mmHg Arterial Blood HCO3 21 mmol/L (21-28) Arterial Blood Base Excess -7 mmol/L (-3-3) FiO2 100 Laboratory Tests Test 10/02/19 04:40 10/02/19 04:49 Prothrombin Time 14.9 SEC (11.7-14.0) Prothromb Time International Ratio 1.2 (0.8-1.1) Fibrinogen 542 mg/dL (200-440) Sodium Level 135 mmol/L (136-145) Potassium Level 4.1 mmol/L (3.5-5.1) Chloride Level 97 mmol/L (98-107) Carbon Dioxide Level 25 mmol/L (21-32) Anion Gap 13 (6-14) Blood Urea Nitrogen 35 mg/dL (8-26) Creatinine 1.1 mg/dL (0.7-1.3) Estimated GFR (Cockcroft-Gault) 65.8 BUN/Creatinine Ratio 32 (6-20) Glucose Level 110 mg/dL (70-99) Lactic Acid Level 3.1 mmol/L (0.4-2.0) Calcium Level 8.6 mg/dL (8.5-10.1) Total Bilirubin 1.3 mg/dL (0.2-1.0) Aspartate Amino Transf (AST/SGOT) 201 U/L (15-37) Alanine Aminotransferase (ALT/SGPT) 143 U/L (16-63) Alkaline Phosphatase 146 U/L (46-116) Troponin I Quantitative 0.338 ng/mL (0.000-0.055) Total Protein 5.7 g/dL (6.4-8.2) Albumin 2.4 g/dL (3.4-5.0) Albumin/Globulin Ratio 0.7 (1.0-1.7) Procalcitonin 16.36 ng/mL (0.00-0.10) O2 Saturation 95 % (92-99) Arterial Blood pH 7.21 (7.35-7.45) Arterial Blood pH (Temp corrected) 7.20 Arterial Blood pCO2 at Patient Temp 54 mmHg (35-46) Arterial Blood pCO2 (Temp correct) 56 mmHg Arterial Blood pO2 at Patient Temp 93 mmHg (65-108) Arterial Blood pO2 (Temp corrected) 99 mmHg Arterial Blood HCO3 21 mmol/L (21-28) Arterial Blood Base Excess -7 mmol/L (-3-3) FiO2 100 Images Images CXR - Life Support Devices: Endotracheal tube terminates 5 cm above the sarah. Left IJ central venous catheter terminates in the mid SVC. Enteric tube terminates in the stomach. Lungs: Normal lung volume. Diffuse bilateral heterogeneous opacities. Indistinct pulmonary vasculature. Pleura: No pleural effusion or pneumothorax. Heart and Mediastinum: Stable cardiomediastinal silhouette and great vessels. IMPRESSION: 1. Diffuse bilateral heterogeneous opacities, consistent with patient's history of infection. 2. Life support devices as above. VTE Prophylaxis Ordered VTE Prophylaxis Devices: Yes VTE Pharmacological Prophylaxi: Yes Assessment/Plan Assessment/Plan A/P: Acute hypoxemic respiratory failure - appears to be 2/2 ARDS, HCAP pneumonia, likely SARS-CoV-2 as well Atrial fibrillation with rapid ventricular response - diltiazem gtt. Cardiology consultation was ordered. I have requested only essential physicians to direct care physically examine, they will consult without contact Pneumonia - HCAP Chronic obstructive pulmonary disease - in acute exacerbation - Titrate FiO2 to keep O2 saturation 94%. cont vent support, on peep 10, Fio2 100%. We will repeat ABG. Change vent setting per ABG. Coronary artery disease - Status post coronary artery bypass graft and aortic valve replacement. As above with cardiology following with telephone consultation due to COVID19 isolation Hypertension. Diabetes mellitus - q6 hour sliding scale FEN - NPO PPX - heparin GTT DNR Dispo - critically in ICU. , John wishes to continue aggressive care for now, not to withdraw vent, no CPR or code meds if he is to arrest CC time 73 minutes PABLO ALCANTARA MD Oct 02, 2019 07:42
[2019-10-02] MEDS: NOREPINEPHRINE VIAL 8 MG in IV DEXTROSE 5% 250 ML IV PRN ×4 (07:54→18:55)
[2019-10-02] MEDS: PANTOPRAZOLE IV PUSH 40 MG VIAL. IVP SCH (07:56)
[2019-10-02] MEDS ORDERED: IPRATRPIUM/ALBUTEROL 0.5/2.5MG 3 ML NEBU. NEB SCH (08:00)
--- NOTE | 2019-10-02 08:13 | CONS ---
DATE OF CONSULTATION: 10/02/2019 REASON FOR CONSULTATION: I was asked to see this 74-year-old gentleman for acute respiratory failure, COVID-19 positive. HISTORY OF PRESENT ILLNESS: The patient is currently intubated and sedated. He is not able to give me any information. All of the information was obtained from chart and nursing staff. He was brought to the Emergency Room via mask for respiratory distress. He was being bagged on arrival to Emergency Room. He was intubated emergently. He was found to have AFib with rapid ventricular response and was started on Cardizem drip. He is currently intubated. He is on PEEP of 10, 100% FiO2 with O2 saturation in 80s, but he is agitated. He was seen at [facility] approximately 10 days ago and he was COVID-19 positive. He was discharged on Thursday (today is Thursday). Per his , he is a DNR. He has advanced directive. PAST MEDICAL HISTORY: Coronary artery disease, COPD, diabetes mellitus, hypercholesterolemia, status post CABG, status post aortic valve replacement in 2010. ALLERGIES: No known drug allergies. MEDICATIONS: Currently, he is on Cardizem drip, Levaquin, vancomycin, DuoNeb. SOCIAL HISTORY: Former smoker. FAMILY HISTORY: Hypertension per chart. REVIEW OF SYSTEMS: As mentioned as above. I have discussed the patient with RN, other systems otherwise negative. PHYSICAL EXAMINATION: GENERAL: This is an overweight gentleman. VITAL SIGNS: His O2 saturation on 100% FiO2, PEEP of 10, is in 80s; heart rate 111; blood pressure 110/68; temperature 100.5. HEENT: Normocephalic, atraumatic. Pupils equal, round and reactive to light. He is orally intubated. Nose is clear. NECK: Short and thick. No lymphadenopathy or thyromegaly. CARDIOVASCULAR: Irregularly irregular rhythm, tachycardic. PMI is nondisplaced. CHEST: Inspection is normal. LUNGS: There are bibasilar crackles, dullness at the bases. ABDOMEN: Soft. Bowel sounds are good. There is no mass. EXTREMITIES: There is no edema. LYMPHATICS: There is no lymphadenopathy. NEUROLOGIC: On the ventilator, agitated. SKIN: Chronic changes. LABORATORY DATA: I reviewed the following lab data. Chest x-ray shows bilateral infiltrate and pleural effusion. ET tube is in good position. The pH 7.21, pCO2 of 54, pO2 of 99 on 100% FiO2. Sodium 135, potassium 4.1, chloride 97, CO2 of 25, glucose 110. Lactic acid 3.1, AST 201, ALT 143, alkaline phosphatase 146. Troponin 0.338. Procalcitonin 16.3. INR 1.2. IMPRESSION: 1. Acute hypoxemic respiratory failure due to ARDS, Coronavirus 19, pneumonia, atrial fibrillation with rapid ventricular response. 2. Abnormal chest x-ray. 3. Pneumonia. 4. Atrial fibrillation with rapid ventricular response. 5. Chronic obstructive pulmonary disease. 6. Coronary artery disease. 7. Status post coronary artery bypass graft and aortic valve replacement. 8. History of hypertension. 9. Diabetes mellitus. PLAN AND RECOMMENDATIONS: 1. Titrate FiO2 to keep O2 saturation 94%. cont vent support, on peep 10, Fio2 100%. We will repeat ABG. Change vent setting per ABG. 2. Agree with antibiotic, per id. ? candidate for Hydroxychloroquine and Azithromycin, will discuss w id attending. 3. Change DuoNeb to Atrovent only, avoid albuterol since he is in atrial fibrillation with rapid ventricular response. 4. Cardizem drip per Cardiology. 5. He is started on heparin drip per Cardiology. 6. Start Protonix for stress ulcer prophylaxis. 7. Monitor respiratory status very closely in ICU. 8. Discussed code status with the patient's on the phone. He is DNR. 9. Air borne isolation The findings and recommendations were discussed with RN and RT, Dr. Ohara and ID rn. Thank you very much for allowing me to participate in care of this very nice gentleman. The patient is critically ill. This is critical care time 35 minutes without overlap. EARLENE ACEVES M.D. DR: MAURICIO/ysabel JOB#: [id number] / [id number] BENY
[2019-10-02] MEDS: IPRATROPIUM BROMIDE 0.5 MG/2.5 ML NEBU. NEB SCH ×4 (08:24→20:00)
[2019-10-02 08:35] LABS: BASE EXCESS ABG -6 mmol/L (-3-3); HCO3 ABG 21 mmol/L (21-28); PCO2 ABG 47 mmHg (35-46); PO2 ABG 87 mmHg (65-108); SAT O2 ABG 95 % (92-99)
[2019-10-02 10:05] LABS: BASO % 0 % (0-3); EOS % 0 % (0-3); HEMATOCRIT 36.3 % (39.0-53.0); HEMOGLOBIN 11.8 g/dL (13.0-17.5); LYMPH # 0.5 x10^3/uL (1.0-4.8); LYMPH % 4 % (24-48); MEAN CORPUSCULAR HEMOGLOBIN 27 pg (25-35); MEAN CORPUSCULAR HGB CONC 33 g/dL (31-37); MEAN CORPUSCULAR VOLUME 83 fL (79-100); MONO # 0.3 x10^3/uL (0.0-1.1); MONO % 3 % (0-9); NEUT % 93 % (31-73); PLATELET COUNT 154 x10^3/uL (140-400); RED BLOOD COUNT 4.37 x10^6/uL (4.30-5.70); RED CELL DISTRIBUTION WIDTH 16.4 % (11.5-14.5); WHITE BLOOD COUNT 11.7 x10^3/uL (4.0-11.0)
[2019-10-02 10:23] LABS: % BANDS 16 % (0-9); % LYMPHS 3 % (24-48); % MONOS 2 % (0-10); % SEGS 79 % (35-66); PLT ESTIMATE ADEQUATE (ADEQUATE)
[2019-10-02 10:24] LABS: ANISOCYTOSIS SLIGHT; OVALOCYTES FEW
[2019-10-02 10:25] LABS: BURR CELLS FEW
--- NOTE | 2019-10-02 10:36 | PDOC2 ---
CARDIOLOGY CONSULT NOTE CHEIF COMPLAINT: afib with rvr HPI: 74 y.o male admitted with hypoxic resp failure due to COVID Cardiology asked to eval patient for afib episode. Now in SR. No prior cardiac issues. Trop also elevated and he has been on dilt and hep gtt Chart reviewed extensively and [facility] chart reviewed as well. PMHX: CAD s/p CABG Prior AVR COPD on home o2 at 2L SOCHX: Lives with . DNR FAMHX: NC CURRENT MEDS: Current Medications Medications (Trade) Dose Ordered Sig/Magdalena Route PRN Reason Start Time Stop Time Status Last Admin Dose Admin Midazolam HCl 50 mg/Sodium Chloride 50 ml @ 0 mls/hr 1X ONCE IV 10/02/19 04:30 10/02/19 04:31 DC 10/02/19 04:49 Sodium Chloride 1,000 ml @ 2,340 mls/hr Q26M IV 10/02/19 05:00 10/02/19 06:00 DC 10/02/19 05:15 Piperacillin Sod/ Tazobactam Sod 4.5 gm/Sodium Chloride 100 ml @ 200 mls/hr 1X ONCE IV 10/02/19 05:00 10/02/19 05:29 DC 10/02/19 05:25 Vancomycin HCl (Vanco Per Pharmacy) 1 each 1X ONCE MC 10/02/19 04:45 10/02/19 07:09 DC 10/02/19 04:45 Norepinephrine Bitartrate 8 mg/ Dextrose 258 ml @ 0 mls/hr CONT PRN IV PER PROTOCOL 10/02/19 05:00 10/02/19 07:54 Levofloxacin/ Dextrose 150 ml @ 100 mls/hr 1X ONCE IV 10/02/19 05:00 10/02/19 06:29 DC 10/02/19 06:07 Diltiazem HCl (Cardizem Iv Push) 10 mg 1X ONCE IVP 10/02/19 05:00 10/02/19 05:01 DC 10/02/19 05:05 Diltiazem HCl 125 mg/Sodium Chloride 125 ml @ 5 mls/hr 1X ONCE IV 10/02/19 05:00 10/03/19 05:59 10/02/19 05:09 Acetaminophen (Tylenol Supp) 650 mg 1X ONCE KS 10/02/19 05:00 10/02/19 05:01 DC 10/02/19 05:15 Vancomycin HCl 2 gm/Sodium Chloride 500 ml @ 250 mls/hr 1X ONCE IV 10/02/19 05:30 10/02/19 07:29 DC 10/02/19 06:45 Info (Anti-Coagulation Monitoring By Pharmacy) 1 each PRN DAILY PRN MC SEE COMMENTS 10/02/19 07:30 10/02/19 07:22 Vancomycin HCl (Vanco Per Pharmacy) 1 each PRN DAILY PRN MC SEE COMMENTS 10/02/19 07:30 10/02/19 08:44 Ipratropium Larned (Atrovent) 0.5 mg Q4HRS NEB 10/02/19 08:00 10/02/19 08:24 Pantoprazole Sodium (PROTONIX VIAL for IV PUSH) 40 mg DAILYAC IVP 10/02/19 07:30 10/02/19 07:56 Midazolam HCl 50 mg/Sodium Chloride 50 ml @ 1 mls/hr CONT PRN IV SEE I/O RECORD 10/02/19 07:30 10/02/19 07:41 Fentanyl Citrate 30 ml @ 0 mls/hr CONT PRN IV SEE PROTOCOL 10/02/19 07:30 10/02/19 07:44 ALLERGIES: Allergies Coded Allergies Type Severity Reaction Last Updated Verified No Known Drug Allergies 08/05/19 No ROS: Not obtained due to patient being intubated PHYSICAL EXAM: Vital Signs/I&O: Vital Signs Date Time Temp Pulse Resp B/P (MAP) Pulse Ox O2 Delivery O2 Flow Rate FiO2 10/02/19 10:17 99 Ventilator 10/02/19 10:00 86 22 90/57 (68) 10/02/19 07:00 100.8 100.8 10/02/19 04:53 15.0 I & O 10/01/19 10/01/19 10/02/19 15:00 23:00 07:00 Intake Total 2440 ml Output Total 100 ml Balance 2340 ml Physical Exam: Deferred DIAGNOSTIC TESTING: labs reviewed. Current in SR. Lab Laboratory Tests Test 10/02/19 04:40 10/02/19 04:49 10/02/19 09:50 Prothrombin Time 14.9 SEC (11.7-14.0) H Prothromb Time International Ratio 1.2 (0.8-1.1) H Fibrinogen 542 mg/dL (200-440) H Sodium Level 135 mmol/L (136-145) L Potassium Level 4.1 mmol/L (3.5-5.1) Chloride Level 97 mmol/L (98-107) L Carbon Dioxide Level 25 mmol/L (21-32) Anion Gap 13 (6-14) Blood Urea Nitrogen 35 mg/dL (8-26) H Creatinine 1.1 mg/dL (0.7-1.3) Estimated GFR (Cockcroft-Gault) 65.8 BUN/Creatinine Ratio 32 (6-20) H Glucose Level 110 mg/dL (70-99) H Lactic Acid Level 3.1 mmol/L (0.4-2.0) H 1.2 mmol/L (0.4-2.0) Calcium Level 8.6 mg/dL (8.5-10.1) Total Bilirubin 1.3 mg/dL (0.2-1.0) H Aspartate Amino Transf (AST/SGOT) 201 U/L (15-37) H Alkaline Phosphatase 146 U/L (46-116) H Total Protein 5.7 g/dL (6.4-8.2) L Albumin 2.4 g/dL (3.4-5.0) L Albumin/Globulin Ratio 0.7 (1.0-1.7) L Procalcitonin 16.36 ng/mL (0.00-0.10) H O2 Saturation 95 % (92-99) Arterial Blood pH 7.21 (7.35-7.45) L Arterial Blood pH (Temp corrected) 7.20 Arterial Blood pCO2 at Patient Temp 54 mmHg (35-46) H Arterial Blood pCO2 (Temp correct) 56 mmHg Arterial Blood pO2 at Patient Temp 93 mmHg (65-108) Arterial Blood pO2 (Temp corrected) 99 mmHg Arterial Blood HCO3 21 mmol/L (21-28) Arterial Blood Base Excess -7 mmol/L (-3-3) L FiO2 100 White Blood Count 11.7 x10^3/uL (4.0-11.0) H Red Blood Count 4.37 x10^6/uL (4.30-5.70) Hemoglobin 11.8 g/dL (13.0-17.5) L Hematocrit 36.3 % (39.0-53.0) L Mean Corpuscular Volume 83 fL (79-100) Mean Corpuscular Hemoglobin 27 pg (25-35) Mean Corpuscular Hemoglobin Concent 33 g/dL (31-37) Red Cell Distribution Width 16.4 % (11.5-14.5) H Platelet Count 154 x10^3/uL (140-400) Neutrophils (%) (Auto) 93 % (31-73) H Lymphocytes (%) (Auto) 4 % (24-48) L Monocytes (%) (Auto) 3 % (0-9) Eosinophils (%) (Auto) 0 % (0-3) Basophils (%) (Auto) 0 % (0-3) Neutrophils # (Auto) 11.0 x10^3/uL (1.8-7.7) H Lymphocytes # (Auto) 0.5 x10^3/uL (1.0-4.8) L Monocytes # (Auto) 0.3 x10^3/uL (0.0-1.1) Eosinophils # (Auto) 0.0 x10^3/uL (0.0-0.7) Basophils # (Auto) 0.0 x10^3/uL (0.0-0.2) Segmented Neutrophils % 79 % (35-66) H Band Neutrophils % 16 % (0-9) H Lymphocytes % 3 % (24-48) L Monocytes % 2 % (0-10) Platelet Estimate Adequate (ADEQUATE) Large Platelets Few Anisocytosis Slight Ovalocytes Few [place] Cells Few Laboratory Tests 10/02/19 04:40 10/02/19 09:50 ASSESSMENT: 1. Afib with rvr in the setting of covid positive PNA 2. Prior CAD and CABG. - no acute EKG changes. No prior chest pain. PLAN: 1. Continue pressors and tx of sepsis 2. Supportive care from CV standpoint. He is DNR. No further CV input at this time. MARGIE HARPER MD Oct 02, 2019 10:36
[2019-10-02 10:48] LABS: FIO2 ABG 100
--- NOTE | 2019-10-02 11:35 | PDOC ---
Infectious Disease Note Vital Sign Vital Signs Vital Signs Date Time Temp Pulse Resp B/P (MAP) Pulse Ox O2 Delivery O2 Flow Rate FiO2 10/02/19 10:17 99 Ventilator 10/02/19 10:00 86 22 90/57 (68) 10/02/19 07:00 100.8 100.8 10/02/19 04:53 15.0 Labs Lab Laboratory Tests Test 10/02/19 04:40 10/02/19 04:49 10/02/19 08:30 10/02/19 09:50 Prothrombin Time 14.9 SEC (11.7-14.0) Prothromb Time International Ratio 1.2 (0.8-1.1) Fibrinogen 542 mg/dL (200-440) Sodium Level 135 mmol/L (136-145) Potassium Level 4.1 mmol/L (3.5-5.1) Chloride Level 97 mmol/L (98-107) Carbon Dioxide Level 25 mmol/L (21-32) Anion Gap 13 (6-14) Blood Urea Nitrogen 35 mg/dL (8-26) Creatinine 1.1 mg/dL (0.7-1.3) Estimated GFR (Cockcroft-Gault) 65.8 BUN/Creatinine Ratio 32 (6-20) Glucose Level 110 mg/dL (70-99) Lactic Acid Level 3.1 mmol/L (0.4-2.0) 1.2 mmol/L (0.4-2.0) Calcium Level 8.6 mg/dL (8.5-10.1) Total Bilirubin 1.3 mg/dL (0.2-1.0) Aspartate Amino Transf (AST/SGOT) 201 U/L (15-37) Alanine Aminotransferase (ALT/SGPT) 143 U/L (16-63) Alkaline Phosphatase 146 U/L (46-116) Troponin I Quantitative 0.338 ng/mL (0.000-0.055) Total Protein 5.7 g/dL (6.4-8.2) Albumin 2.4 g/dL (3.4-5.0) Albumin/Globulin Ratio 0.7 (1.0-1.7) Procalcitonin 16.36 ng/mL (0.00-0.10) O2 Saturation 95 % (92-99) 95 % (92-99) Arterial Blood pH 7.21 (7.35-7.45) 7.26 (7.35-7.45) Arterial Blood pH (Temp corrected) 7.20 Arterial Blood pCO2 at Patient Temp 54 mmHg (35-46) 47 mmHg (35-46) Arterial Blood pCO2 (Temp correct) 56 mmHg Arterial Blood pO2 at Patient Temp 93 mmHg (65-108) 87 mmHg (65-108) Arterial Blood pO2 (Temp corrected) 99 mmHg Arterial Blood HCO3 21 mmol/L (21-28) 21 mmol/L (21-28) Arterial Blood Base Excess -7 mmol/L (-3-3) -6 mmol/L (-3-3) FiO2 100 100 White Blood Count 11.7 x10^3/uL (4.0-11.0) Red Blood Count 4.37 x10^6/uL (4.30-5.70) Hemoglobin 11.8 g/dL (13.0-17.5) Hematocrit 36.3 % (39.0-53.0) Mean Corpuscular Volume 83 fL (79-100) Mean Corpuscular Hemoglobin 27 pg (25-35) Mean Corpuscular Hemoglobin Concent 33 g/dL (31-37) Red Cell Distribution Width 16.4 % (11.5-14.5) Platelet Count 154 x10^3/uL (140-400) Neutrophils (%) (Auto) 93 % (31-73) Lymphocytes (%) (Auto) 4 % (24-48) Monocytes (%) (Auto) 3 % (0-9) Eosinophils (%) (Auto) 0 % (0-3) Basophils (%) (Auto) 0 % (0-3) Neutrophils # (Auto) 11.0 x10^3/uL (1.8-7.7) Lymphocytes # (Auto) 0.5 x10^3/uL (1.0-4.8) Monocytes # (Auto) 0.3 x10^3/uL (0.0-1.1) Eosinophils # (Auto) 0.0 x10^3/uL (0.0-0.7) Basophils # (Auto) 0.0 x10^3/uL (0.0-0.2) Segmented Neutrophils % 79 % (35-66) Band Neutrophils % 16 % (0-9) Lymphocytes % 3 % (24-48) Monocytes % 2 % (0-10) Platelet Estimate Adequate (ADEQUATE) Large Platelets Few Anisocytosis Slight Ovalocytes Few [place] Cells Few Objective Assessment Septic shock POA, on Levaphed Acute respiratory failure with worsening SARS-CoV infection (detected 09/25 at ). -Discharged from 09/28 on Predisone taper and 2L O2. Fever Lactic acidosis A-fib RVR Bioprosthetic AVR COPD, 2L O2 baseline h/o enterobacter cloacae Plan Plan of Care Continue vanc One time dose levaquin and Zosyn given ER, 10/01 add merrem Zhao-cultures Monitor lab values/temp Maintain aspiration precautions Supportive care D/w nursing Critically ill Thank you Full consult to follow COVID 19 + 09/25 home on prednisone taper with h/o COPD At d/c was on 2 L 02 and baseline 2.5 to 3 L Uncertain if viral infection/secondary infection/post viral syndrome/cardiac issues Add Meropenem for H/o Enterobacter in past cont Vanc with AVR Given acute resp issues with + COVID PCR 09/25 will Dose Hydroxychloroquine and Azithromycin - D/w Pharmacy and with Dr. Ponce re use of both Given elevation of LFTs does not qualify for Tocilzumab D/w nursing and RT no sputum as unable to get a specimen but will try again UA ordered with cult if indicated but d/w lab and not in lab - d/w Heme and nursing Dose micafungin given d/c on steroids and abx exposure Critically ill 35 mins D/w Dr. Vivian Fox ID Attending Co-Sign Attending Co-Sign The patient was seen and interviewed as well as examined at the bedside. The chart was reviewed. The case was discussed. Agree with the plan of care. TEODORO BREWER APRN Oct 02, 2019 11:35 JENNIFER DIEHL MD Oct 02, 2019 11:57
[2019-10-02] MEDS: MICAFUNGIN 100 MG in IV DEXTROSE 5% 100ML 100 ML IV SCH (12:31)
[2019-10-02] MEDS: AZITHROMYCIN 500 MG in IV NORMAL SALINE 250ML 250 ML IV SCH (12:32)
[2019-10-02] MEDS: MEROPENEM 500 MG in IV NORMAL SALINE 50ML 50 ML IV SCH ×3 (12:32→23:06)
[2019-10-02] MEDS: HYDROXYCHLOROQUINE 200 MG TABLET PO SCH ×2 (12:32→23:07)
[2019-10-02 13:06] LABS: BILIRUBIN,URINE SMALL (NEG); COLOR,URINE YELLOW; NITRITE,URINE NEGATIVE (NEG); PH,URINE 5.5 (<5.0-8.0); PROTEIN,URINE 100 mg/dL (NEG-TRACE)
[2019-10-02 13:10] LABS: CLARITY,URINE HAZY
[2019-10-02 13:20] LABS: AMORPHOUS SEDIMENT,UR PRESENT /HPF; GRANULAR CASTS,URINE FEW /HPF; HYALINE CASTS, URINE FEW /HPF
[2019-10-02 13:21] LABS: BACTERIA,URINE FEW /HPF (0-FEW); SQUAMOUS EPITHELIAL CELL,UR OCC /LPF
[2019-10-02 14:52] LABS: MYCOPLASMA PATIENT NEGATIVE (NEGATIVE)
--- NOTE | 2019-10-02 18:31 | CONS ---
DATE OF CONSULTATION: 10/02/2019 REFERRING PHYSICIAN: Dr. Borrego REASON FOR CONSULTATION: COVID management. HISTORY OF PRESENT ILLNESS: This patient is a 74-year-old male with a history of chronic obstructive pulmonary disease, on 2 liters oxygen at baseline; diabetes type 2; and coronary artery disease, status post coronary artery bypass graft with aortic valve replacement in 2010. He is currently intubated and sedated and unable to provide history of present illness, past medical history, or review of systems. There is no family present. According to the medical record and nursing staff, he was brought to the ER via EMS for severe hypoxic respiratory distress with fever. He was intubated. His WBC count was 11,700, segs 79%, and bands 16%. Lactic acid was 3.1 and procalcitonin was 16.36. Chest x-ray showed diffuse bilateral heterogenous opacities. Zhao cultures were ordered. He was dosed with vancomycin, Zosyn, and levofloxacin and placed in airborne isolation. He is hypotensive, requiring vasopressor support. He had an episode of atrial fibrillation with rapid response and was seen by Cardiology. The patient was recently admitted to [facility] for acute SARS-CoV infection and discharged on 09/29/2019 on a prednisone taper. He had been on vancomycin, cefepime, and levofloxacin empirically, which were all weaned off. He also was admitted here at [place] earlier this month for acute exacerbation of COPD. At that time, a CT chest revealed atelectasis. He was discharged home on Trelegy, doxycycline, and prednisone. PAST MEDICAL HISTORY: History of Enterobacter cloacae UTI (resistant to Augmentin, cefazolin, cefuroxime, tetracycline intermediate, and nitrofurantoin, otherwise susceptible) 07/2019; COPD, 2 liters oxygen baseline; diabetes type 2; coronary artery disease; atrial fibrillation; hypertension; hyperlipidemia; history of aortic stenosis; arthritis; chronic sinusitis; chronic bronchitis; colon polyps; depression; heart attack; and obstructive sleep apnea. PAST SURGICAL HISTORY: Coronary artery bypass graft with aortic valve replacement in 2010 at . SOCIAL HISTORY: The patient is and lives at home. He is a former smoker. FAMILY HISTORY: Lung cancer, heart attack, and emphysema. ALLERGIES: No known drug allergies. MEDICATIONS: Include vancomycin, one-time dose of Levaquin, and Zosyn in ER. Levophed, diltiazem, DuoNeb, Atrovent, ondansetron, pantoprazole, acetaminophen, Versed, heparin, and fentanyl. REVIEW OF SYSTEMS: Unobtainable, as the patient is currently intubated and sedated. PHYSICAL EXAMINATION: VITAL SIGNS: Temperature is 100.8, blood pressure 90/57, heart rate 86, respiratory rate 22, and pulse oximetry 99% on FiO2 100%. BMI 29. GENERAL: The patient is orally intubated and sedated with mittens in place. HEENT: Pupils are equally round and nonreactive. ETT and OGT in place. NECK: Supple. LUNGS: Coarse. HEART: S1 and S2 irregular. ABDOMEN: Soft and nontender. Hypoactive bowel sounds. GENITOURINARY: Indwelling Amor in place. EXTREMITIES: Trace edema. No cyanosis. SKIN: Warm to touch. No signs of rash. NEUROLOGIC: Unresponsive on sedation. Left IJ (3-22) without signs of any complications. LABORATORY DATA: WBC 11.7, hemoglobin 11.8, platelets 154,000, segs 79%, and bands 16%. Sodium 135, potassium 4.1, creatinine 1.1, and BUN 35. Lactic acid 1.2 from 3.1. Glucose 110, total bilirubin 1.3, AST 211, ALT 143, and alkaline phosphatase 146. Troponin 0.338, albumin 2.4, and procalcitonin 16.36. Zhao cultures pending. Chest x-ray per HPI. IMPRESSION: 1. Septic shock, present on admission. 2. Acute respiratory failure with worsening SARS-CoV infection (detected on 09/26/2019 at ). 3. Fever. 4. Lactic acidosis. 5. Atrial fibrillation with rapid ventricular response. 6. History of bioprosthetic aortic valve replacement. 7. Chronic obstructive pulmonary disease, usually on 2 liters oxygen baseline. 8. History of Enterobacter cloacae in urine. PLAN: It is uncertain whether the patient is having secondary infection versus a post-viral syndrome versus cardiac issues. With that said, given acute respiratory issues with COVID-19 infection, we will dose with hydroxychloroquine and azithromycin. This was discussed with both pharmacy and Dr. Ponce, Cardiology. Given LFT elevation, he does not qualify for Tocilizumab. Continue the vancomycin and add meropenem for history of Enterobacter in the past. Also, recommend micafungin given recent exposure to steroids and antibiotics. A mycoplasma IgM and strep pneumo antigen have been ordered. Continue to monitor closely. Maintain aspiration precautions. Airborne isolation. The patient is critically ill. His code status is now DNR. Thank you Dr. Borrego for asking us to participate in this patient's care. Should you have further questions or concerns, please call. The patient is seen and examined and plan of care implemented by Dr. Ian Diehl. IAN DIEHL MD DR: MARY/ysabel JOB#: [id number] / [id number]
[2019-10-02] MEDS: VANCOMYCIN 1.5 GM in IV NORMAL SALINE 500ML BAG 500 ML IV SCH (19:32)
[2019-10-02 21:44] LABS: BASE EXCESS ABG -5 mmol/L (-3-3); HCO3 ABG 22 mmol/L (21-28); PCO2 ABG 51 mmHg (35-46); SAT O2 ABG 75 % (92-99)
[2019-10-02 21:58] LABS: FIO2 ABG 100; PO2 ABG 44 mmHg (65-108)
[2019-10-02] MEDS ORDERED: IV NORMAL SALINE 500ML BAG 500 ML IV PRN (22:00)
[2019-10-02] MEDS ORDERED: ATROPINE 0.5 MG/5 ML DISP.SYRINGE. IV PRN (22:00)
--- NOTE | 2019-10-02 22:28 | RAD ---
Exam: Chest one view INDICATION: Endotracheal tube, decreased sats TECHNIQUE: Frontal view of the chest Comparisons: 10/02/2019 FINDINGS: Sternotomy wires are noted. Endotracheal tube with tip approximately 4 cm above the sarah. Enteric tube traverses below the diaphragm distal extent not not visualized. Left IJ catheter with tip at the SVC. The cardiomediastinal silhouette and pulmonary vessels are within normal limits. Patchy airspace disease within the lungs bilaterally. Acetabula change from prior exam. IMPRESSION: 1. Lines and tubes described above. 2. Persistent patchy bilateral airspace disease. Electronically signed by: Crys Bullock MD (10/02/2019 10:25 PM) [id number]
--- NOTE | 2019-10-02 22:51 | NUR ---
SPO2 down to 78-84%, resps 28-34 bpm, pt appears to be agonal breathing and continues to alarm vent. Increased Versed and Fentanyl. Notified RT, ABG was obtained. Dr. Casper called with status update and ABG results, received new orders. notified of change in condition.
[2019-10-02] MEDS: DEXMEDETOMIDINE 400 MCG in IV NORMAL SALINE 100ML 96 ML IV PRN (23:00)
[2019-10-03] VITALS (24 sets, daily range): BP systolic 67–133; BP diastolic 42–73
[2019-10-03] MEDS: NOREPINEPHRINE VIAL 8 MG in IV DEXTROSE 5% 250 ML IV PRN ×4 (00:05→16:53)
[2019-10-03] MEDS: ACETAMINOPHEN 325 MG TABLET. PO PRN ×2 (00:05→12:33)
[2019-10-03] MEDS: IPRATROPIUM BROMIDE 0.5 MG/2.5 ML NEBU. NEB SCH ×5 (03:31→16:00)
[2019-10-03] MEDS: MIDAZOLAM HCL 50 MG in IV NORMAL SALINE 50ML 50 ML IV PRN ×3 (04:12→16:51)
[2019-10-03] MEDS: MEROPENEM 500 MG in IV NORMAL SALINE 50ML 50 ML IV SCH ×2 (05:59→12:22)
[2019-10-03 06:59] LABS: BASO % 0 % (0-3); EOS % 1 % (0-3); HEMATOCRIT 33.1 % (39.0-53.0); HEMOGLOBIN 10.7 g/dL (13.0-17.5); LYMPH # 0.2 x10^3/uL (1.0-4.8); LYMPH % 6 % (24-48); MEAN CORPUSCULAR HEMOGLOBIN 27 pg (25-35); MEAN CORPUSCULAR HGB CONC 32 g/dL (31-37); MEAN CORPUSCULAR VOLUME 83 fL (79-100); MONO # 0.1 x10^3/uL (0.0-1.1); MONO % 3 % (0-9); NEUT # 3.8 x10^3/uL (1.8-7.7); NEUT % 90 % (31-73); PLATELET COUNT 112 x10^3/uL (140-400); RED BLOOD COUNT 3.98 x10^6/uL (4.30-5.70); RED CELL DISTRIBUTION WIDTH 16.3 % (11.5-14.5); WHITE BLOOD COUNT 4.2 x10^3/uL (4.0-11.0)
--- NOTE | 2019-10-03 07:11 | NUR ---
IP: COVID testing and requires droplet.contact precautions using a faceshield until results are verified.
[2019-10-03 07:12] LABS: ALBUMIN 1.6 g/dL (3.4-5.0); ALBUMIN/GLOBULIN RATIO 0.5 (1.0-1.7); CALCIUM 7.7 mg/dL (8.5-10.1); CREATININE 1.6 mg/dL (0.7-1.3); GFR 42.7; POTASSIUM 3.7 mmol/L (3.5-5.1); TOTAL BILIRUBIN 0.6 mg/dL (0.2-1.0)
--- NOTE | 2019-10-03 07:24 | PDOC ---
Infectious Disease Note Subjective Subjective Intubated/Sedated ROS ROS o/w neg Vital Sign Vital Signs Vital Signs Date Time Temp Pulse Resp B/P (MAP) Pulse Ox O2 Delivery O2 Flow Rate FiO2 10/03/19 06:00 99.8 87 26 84/59 (67) 96 Ventilator 99.8 Physical Exam PHYSICAL EXAM GENERAL: The patient is orally intubated and sedated with mittens in place. HEENT: Pupils are equally round and nonreactive. ETT and OGT in place. NECK: Supple. LUNGS: Coarse. HEART: S1 and S2 irregular. ABDOMEN: Soft and nontender. Hypoactive bowel sounds. GENITOURINARY: Indwelling Amor in place. EXTREMITIES: Trace edema. No cyanosis. SKIN: Warm to touch. No signs of rash. NEUROLOGIC: Unresponsive on sedation. Labs Lab Laboratory Tests Test 10/02/19 08:30 10/02/19 09:50 10/02/19 13:00 10/02/19 21:25 O2 Saturation 95 % (92-99) 75 % (92-99) Arterial Blood pH 7.26 (7.35-7.45) 7.26 (7.35-7.45) Arterial Blood pCO2 at Patient Temp 47 mmHg (35-46) 51 mmHg (35-46) Arterial Blood pO2 at Patient Temp 87 mmHg (65-108) 44 mmHg (65-108) Arterial Blood HCO3 21 mmol/L (21-28) 22 mmol/L (21-28) Arterial Blood Base Excess -6 mmol/L (-3-3) -5 mmol/L (-3-3) FiO2 100 100 White Blood Count 11.7 x10^3/uL (4.0-11.0) Red Blood Count 4.37 x10^6/uL (4.30-5.70) Hemoglobin 11.8 g/dL (13.0-17.5) Hematocrit 36.3 % (39.0-53.0) Mean Corpuscular Volume 83 fL (79-100) Mean Corpuscular Hemoglobin 27 pg (25-35) Mean Corpuscular Hemoglobin Concent 33 g/dL (31-37) Red Cell Distribution Width 16.4 % (11.5-14.5) Platelet Count 154 x10^3/uL (140-400) Neutrophils (%) (Auto) 93 % (31-73) Lymphocytes (%) (Auto) 4 % (24-48) Monocytes (%) (Auto) 3 % (0-9) Eosinophils (%) (Auto) 0 % (0-3) Basophils (%) (Auto) 0 % (0-3) Neutrophils # (Auto) 11.0 x10^3/uL (1.8-7.7) Lymphocytes # (Auto) 0.5 x10^3/uL (1.0-4.8) Monocytes # (Auto) 0.3 x10^3/uL (0.0-1.1) Eosinophils # (Auto) 0.0 x10^3/uL (0.0-0.7) Basophils # (Auto) 0.0 x10^3/uL (0.0-0.2) Segmented Neutrophils % 79 % (35-66) Band Neutrophils % 16 % (0-9) Lymphocytes % 3 % (24-48) Monocytes % 2 % (0-10) Platelet Estimate Adequate (ADEQUATE) Large Platelets Few Anisocytosis Slight Ovalocytes Few Arvin Cells Few Lactic Acid Level 1.2 mmol/L (0.4-2.0) Mycoplasma Serology (LAB) Negative (NEGATIVE) Urine Collection Type Unknown Urine Color Yellow Urine Clarity Hazy Urine pH 5.5 (<5.0-8.0) Urine Specific [place] >=1.030 (1.000-1.030) Urine Protein 100 mg/dL (NEG-TRACE) Urine Glucose (UA) Negative mg/dL (NEG) Urine Ketones (Stick) 15 mg/dL (NEG) Urine Blood Small (NEG) Urine Nitrite Negative (NEG) Urine Bilirubin Small (NEG) Urine Urobilinogen Dipstick 1.0 mg/dL (0.2 mg/dL) Urine Leukocyte Esterase Negative (NEG) Urine RBC 6-10 /HPF (0-2) Urine WBC 1-4 /HPF (0-4) Urine Squamous Epithelial Cells Occ /LPF Urine Renal Epithelial Cells Few /LPF Urine Amorphous Sediment Present /HPF Urine Bacteria Few /HPF (0-FEW) Urine Hyaline Casts Few /HPF Urine Granular Casts Few /HPF Urine Mucus Slight /LPF Test 10/03/19 06:10 Sodium Level 135 mmol/L (136-145) Potassium Level 3.7 mmol/L (3.5-5.1) Chloride Level 102 mmol/L (98-107) Carbon Dioxide Level 24 mmol/L (21-32) Anion Gap 9 (6-14) Blood Urea Nitrogen 31 mg/dL (8-26) Creatinine 1.6 mg/dL (0.7-1.3) Estimated GFR (Cockcroft-Gault) 42.7 BUN/Creatinine Ratio 19 (6-20) Glucose Level 95 mg/dL (70-99) Calcium Level 7.7 mg/dL (8.5-10.1) Total Bilirubin 0.6 mg/dL (0.2-1.0) Aspartate Amino Transf (AST/SGOT) 76 U/L (15-37) Alanine Aminotransferase (ALT/SGPT) 114 U/L (16-63) Alkaline Phosphatase 106 U/L (46-116) Total Protein 5.0 g/dL (6.4-8.2) Albumin 1.6 g/dL (3.4-5.0) Albumin/Globulin Ratio 0.5 (1.0-1.7) Micro Microbiology 10/02/19 Blood Culture - Preliminary, Resulted NO GROWTH AFTER 1 DAY Objective Assessment Septic shock POA, on Levophed 27 or .3 SOUTH Acute respiratory failure with worsening SARS-CoV infection (detected 09/25 at ). -Discharged from 09/28 on Predisone taper and 2L O2. On 100 % and now 12 of PEEP from 11 Fever Lactic acidosis A-fib RVR Bioprosthetic AVR COPD, 2L O2 baseline h/o enterobacter cloacae Plan Plan of Care Continue vanc One time dose levaquin and Zosyn given ER, 10/01 add merrem Zhao-cultures Monitor lab values/temp Maintain aspiration precautions Supportive care D/w nursing Critically ill Thank you Full consult to follow COVID 19 + 09/25 home on prednisone taper with h/o COPD At d/c was on 2 L 02 and baseline 2.5 to 3 L Uncertain if viral infection/secondary infection/post viral syndrome/cardiac issues Add Meropenem for H/o Enterobacter in past cont Vanc with AVR Given acute resp issues with + COVID PCR 09/25 will Dose Hydroxychloroquine and Azithromycin - D/w Pharmacy and with Dr. Ponce re use of both Given elevation of LFTs does not qualify for Tocilzumab D/w nursing and RT no sputum as unable to get a specimen but will try again UA ordered with cult if indicated but d/w lab and not in lab - d/w Heme and nursing Dose micafungin given d/c on steroids and abx exposure Critically ill 35 mins D/w JENNIFER Rios MD Oct 03, 2019 07:24
[2019-10-03] MEDS: VANCOMYCIN 1.5 GM in IV NORMAL SALINE 500ML BAG 500 ML IV SCH (07:54)
[2019-10-03] MEDS: PANTOPRAZOLE IV PUSH 40 MG VIAL. IVP SCH (07:55)
--- NOTE | 2019-10-03 08:21 | PDOC ---
PULMONARY PROGRESS NOTES Subjective PT SEDATED ON AC MODE 100% 12 PEEP ON LEVOPHED Vitals Vital Signs Date Time Temp Pulse Resp B/P (MAP) Pulse Ox O2 Delivery O2 Flow Rate FiO2 10/03/19 08:10 78 26 116/66 (83) 95 Ventilator 10/03/19 07:00 99.3 99.3 Lungs: Clear Cardiovascular: S1, S2 Abdomen: Soft Extremities: No Edema Labs Laboratory Tests Test 10/02/19 04:40 10/02/19 04:49 10/02/19 08:30 10/02/19 09:50 Prothrombin Time 14.9 SEC (11.7-14.0) Prothromb Time International Ratio 1.2 (0.8-1.1) Fibrinogen 542 mg/dL (200-440) Sodium Level 135 mmol/L (136-145) Potassium Level 4.1 mmol/L (3.5-5.1) Chloride Level 97 mmol/L (98-107) Carbon Dioxide Level 25 mmol/L (21-32) Anion Gap 13 (6-14) Blood Urea Nitrogen 35 mg/dL (8-26) Creatinine 1.1 mg/dL (0.7-1.3) Estimated GFR (Cockcroft-Gault) 65.8 BUN/Creatinine Ratio 32 (6-20) Glucose Level 110 mg/dL (70-99) Lactic Acid Level 3.1 mmol/L (0.4-2.0) 1.2 mmol/L (0.4-2.0) Calcium Level 8.6 mg/dL (8.5-10.1) Total Bilirubin 1.3 mg/dL (0.2-1.0) Aspartate Amino Transf (AST/SGOT) 201 U/L (15-37) Alanine Aminotransferase (ALT/SGPT) 143 U/L (16-63) Alkaline Phosphatase 146 U/L (46-116) Troponin I Quantitative 0.338 ng/mL (0.000-0.055) Total Protein 5.7 g/dL (6.4-8.2) Albumin 2.4 g/dL (3.4-5.0) Albumin/Globulin Ratio 0.7 (1.0-1.7) Procalcitonin 16.36 ng/mL (0.00-0.10) O2 Saturation 95 % (92-99) 95 % (92-99) Arterial Blood pH 7.21 (7.35-7.45) 7.26 (7.35-7.45) Arterial Blood pH (Temp corrected) 7.20 Arterial Blood pCO2 at Patient Temp 54 mmHg (35-46) 47 mmHg (35-46) Arterial Blood pCO2 (Temp correct) 56 mmHg Arterial Blood pO2 at Patient Temp 93 mmHg (65-108) 87 mmHg (65-108) Arterial Blood pO2 (Temp corrected) 99 mmHg Arterial Blood HCO3 21 mmol/L (21-28) 21 mmol/L (21-28) Arterial Blood Base Excess -7 mmol/L (-3-3) -6 mmol/L (-3-3) FiO2 100 100 White Blood Count 11.7 x10^3/uL (4.0-11.0) Red Blood Count 4.37 x10^6/uL (4.30-5.70) Hemoglobin 11.8 g/dL (13.0-17.5) Hematocrit 36.3 % (39.0-53.0) Mean Corpuscular Volume 83 fL (79-100) Mean Corpuscular Hemoglobin 27 pg (25-35) Mean Corpuscular Hemoglobin Concent 33 g/dL (31-37) Red Cell Distribution Width 16.4 % (11.5-14.5) Platelet Count 154 x10^3/uL (140-400) Neutrophils (%) (Auto) 93 % (31-73) Lymphocytes (%) (Auto) 4 % (24-48) Monocytes (%) (Auto) 3 % (0-9) Eosinophils (%) (Auto) 0 % (0-3) Basophils (%) (Auto) 0 % (0-3) Neutrophils # (Auto) 11.0 x10^3/uL (1.8-7.7) Lymphocytes # (Auto) 0.5 x10^3/uL (1.0-4.8) Monocytes # (Auto) 0.3 x10^3/uL (0.0-1.1) Eosinophils # (Auto) 0.0 x10^3/uL (0.0-0.7) Basophils # (Auto) 0.0 x10^3/uL (0.0-0.2) Segmented Neutrophils % 79 % (35-66) Band Neutrophils % 16 % (0-9) Lymphocytes % 3 % (24-48) Monocytes % 2 % (0-10) Platelet Estimate Adequate (ADEQUATE) Large Platelets Few Anisocytosis Slight Ovalocytes Few Arvin Cells Few Mycoplasma Serology (LAB) Negative (NEGATIVE) Test 10/02/19 13:00 10/02/19 21:25 10/03/19 06:10 Urine Collection Type Unknown Urine Color Yellow Urine Clarity Hazy Urine pH 5.5 (<5.0-8.0) Urine Specific [place] >=1.030 (1.000-1.030) Urine Protein 100 mg/dL (NEG-TRACE) Urine Glucose (UA) Negative mg/dL (NEG) Urine Ketones (Stick) 15 mg/dL (NEG) Urine Blood Small (NEG) Urine Nitrite Negative (NEG) Urine Bilirubin Small (NEG) Urine Urobilinogen Dipstick 1.0 mg/dL (0.2 mg/dL) Urine Leukocyte Esterase Negative (NEG) Urine RBC 6-10 /HPF (0-2) Urine WBC 1-4 /HPF (0-4) Urine Squamous Epithelial Cells Occ /LPF Urine Renal Epithelial Cells Few /LPF Urine Amorphous Sediment Present /HPF Urine Bacteria Few /HPF (0-FEW) Urine Hyaline Casts Few /HPF Urine Granular Casts Few /HPF Urine Mucus Slight /LPF O2 Saturation 75 % (92-99) Arterial Blood pH 7.26 (7.35-7.45) Arterial Blood pCO2 at Patient Temp 51 mmHg (35-46) Arterial Blood pO2 at Patient Temp 44 mmHg (65-108) Arterial Blood HCO3 22 mmol/L (21-28) Arterial Blood Base Excess -5 mmol/L (-3-3) FiO2 100 White Blood Count 4.2 x10^3/uL (4.0-11.0) Red Blood Count 3.98 x10^6/uL (4.30-5.70) Hemoglobin 10.7 g/dL (13.0-17.5) Hematocrit 33.1 % (39.0-53.0) Mean Corpuscular Volume 83 fL (79-100) Mean Corpuscular Hemoglobin 27 pg (25-35) Mean Corpuscular Hemoglobin Concent 32 g/dL (31-37) Red Cell Distribution Width 16.3 % (11.5-14.5) Platelet Count 112 x10^3/uL (140-400) Neutrophils (%) (Auto) 90 % (31-73) Lymphocytes (%) (Auto) 6 % (24-48) Monocytes (%) (Auto) 3 % (0-9) Eosinophils (%) (Auto) 1 % (0-3) Basophils (%) (Auto) 0 % (0-3) Neutrophils # (Auto) 3.8 x10^3/uL (1.8-7.7) Lymphocytes # (Auto) 0.2 x10^3/uL (1.0-4.8) Monocytes # (Auto) 0.1 x10^3/uL (0.0-1.1) Eosinophils # (Auto) 0.0 x10^3/uL (0.0-0.7) Basophils # (Auto) 0.0 x10^3/uL (0.0-0.2) Sodium Level 135 mmol/L (136-145) Potassium Level 3.7 mmol/L (3.5-5.1) Chloride Level 102 mmol/L (98-107) Carbon Dioxide Level 24 mmol/L (21-32) Anion Gap 9 (6-14) Blood Urea Nitrogen 31 mg/dL (8-26) Creatinine 1.6 mg/dL (0.7-1.3) Estimated GFR (Cockcroft-Gault) 42.7 BUN/Creatinine Ratio 19 (6-20) Glucose Level 95 mg/dL (70-99) Calcium Level 7.7 mg/dL (8.5-10.1) Total Bilirubin 0.6 mg/dL (0.2-1.0) Aspartate Amino Transf (AST/SGOT) 76 U/L (15-37) Alanine Aminotransferase (ALT/SGPT) 114 U/L (16-63) Alkaline Phosphatase 106 U/L (46-116) Total Protein 5.0 g/dL (6.4-8.2) Albumin 1.6 g/dL (3.4-5.0) Albumin/Globulin Ratio 0.5 (1.0-1.7) Laboratory Tests Test 10/02/19 08:30 10/02/19 09:50 10/02/19 13:00 10/02/19 21:25 O2 Saturation 95 % (92-99) 75 % (92-99) Arterial Blood pH 7.26 (7.35-7.45) 7.26 (7.35-7.45) Arterial Blood pCO2 at Patient Temp 47 mmHg (35-46) 51 mmHg (35-46) Arterial Blood pO2 at Patient Temp 87 mmHg (65-108) 44 mmHg (65-108) Arterial Blood HCO3 21 mmol/L (21-28) 22 mmol/L (21-28) Arterial Blood Base Excess -6 mmol/L (-3-3) -5 mmol/L (-3-3) FiO2 100 100 White Blood Count 11.7 x10^3/uL (4.0-11.0) Red Blood Count 4.37 x10^6/uL (4.30-5.70) Hemoglobin 11.8 g/dL (13.0-17.5) Hematocrit 36.3 % (39.0-53.0) Mean Corpuscular Volume 83 fL (79-100) Mean Corpuscular Hemoglobin 27 pg (25-35) Mean Corpuscular Hemoglobin Concent 33 g/dL (31-37) Red Cell Distribution Width 16.4 % (11.5-14.5) Platelet Count 154 x10^3/uL (140-400) Neutrophils (%) (Auto) 93 % (31-73) Lymphocytes (%) (Auto) 4 % (24-48) Monocytes (%) (Auto) 3 % (0-9) Eosinophils (%) (Auto) 0 % (0-3) Basophils (%) (Auto) 0 % (0-3) Neutrophils # (Auto) 11.0 x10^3/uL (1.8-7.7) Lymphocytes # (Auto) 0.5 x10^3/uL (1.0-4.8) Monocytes # (Auto) 0.3 x10^3/uL (0.0-1.1) Eosinophils # (Auto) 0.0 x10^3/uL (0.0-0.7) Basophils # (Auto) 0.0 x10^3/uL (0.0-0.2) Segmented Neutrophils % 79 % (35-66) Band Neutrophils % 16 % (0-9) Lymphocytes % 3 % (24-48) Monocytes % 2 % (0-10) Platelet Estimate Adequate (ADEQUATE) Large Platelets Few Anisocytosis Slight Ovalocytes Few Arvin Cells Few Lactic Acid Level 1.2 mmol/L (0.4-2.0) Mycoplasma Serology (LAB) Negative (NEGATIVE) Urine Collection Type Unknown Urine Color Yellow Urine Clarity Hazy Urine pH 5.5 (<5.0-8.0) Urine Specific [place] >=1.030 (1.000-1.030) Urine Protein 100 mg/dL (NEG-TRACE) Urine Glucose (UA) Negative mg/dL (NEG) Urine Ketones (Stick) 15 mg/dL (NEG) Urine Blood Small (NEG) Urine Nitrite Negative (NEG) Urine Bilirubin Small (NEG) Urine Urobilinogen Dipstick 1.0 mg/dL (0.2 mg/dL) Urine Leukocyte Esterase Negative (NEG) Urine RBC 6-10 /HPF (0-2) Urine WBC 1-4 /HPF (0-4) Urine Squamous Epithelial Cells Occ /LPF Urine Renal Epithelial Cells Few /LPF Urine Amorphous Sediment Present /HPF Urine Bacteria Few /HPF (0-FEW) Urine Hyaline Casts Few /HPF Urine Granular Casts Few /HPF Urine Mucus Slight /LPF Test 10/03/19 06:10 White Blood Count 4.2 x10^3/uL (4.0-11.0) Red Blood Count 3.98 x10^6/uL (4.30-5.70) Hemoglobin 10.7 g/dL (13.0-17.5) Hematocrit 33.1 % (39.0-53.0) Mean Corpuscular Volume 83 fL (79-100) Mean Corpuscular Hemoglobin 27 pg (25-35) Mean Corpuscular Hemoglobin Concent 32 g/dL (31-37) Red Cell Distribution Width 16.3 % (11.5-14.5) Platelet Count 112 x10^3/uL (140-400) Neutrophils (%) (Auto) 90 % (31-73) Lymphocytes (%) (Auto) 6 % (24-48) Monocytes (%) (Auto) 3 % (0-9) Eosinophils (%) (Auto) 1 % (0-3) Basophils (%) (Auto) 0 % (0-3) Neutrophils # (Auto) 3.8 x10^3/uL (1.8-7.7) Lymphocytes # (Auto) 0.2 x10^3/uL (1.0-4.8) Monocytes # (Auto) 0.1 x10^3/uL (0.0-1.1) Eosinophils # (Auto) 0.0 x10^3/uL (0.0-0.7) Basophils # (Auto) 0.0 x10^3/uL (0.0-0.2) Sodium Level 135 mmol/L (136-145) Potassium Level 3.7 mmol/L (3.5-5.1) Chloride Level 102 mmol/L (98-107) Carbon Dioxide Level 24 mmol/L (21-32) Anion Gap 9 (6-14) Blood Urea Nitrogen 31 mg/dL (8-26) Creatinine 1.6 mg/dL (0.7-1.3) Estimated GFR (Cockcroft-Gault) 42.7 BUN/Creatinine Ratio 19 (6-20) Glucose Level 95 mg/dL (70-99) Calcium Level 7.7 mg/dL (8.5-10.1) Total Bilirubin 0.6 mg/dL (0.2-1.0) Aspartate Amino Transf (AST/SGOT) 76 U/L (15-37) Alanine Aminotransferase (ALT/SGPT) 114 U/L (16-63) Alkaline Phosphatase 106 U/L (46-116) Total Protein 5.0 g/dL (6.4-8.2) Albumin 1.6 g/dL (3.4-5.0) Albumin/Globulin Ratio 0.5 (1.0-1.7) Medications Active Scripts Medications Dose Route/Sig Max Daily Dose Days Date Category Prednisone 50 Mg Tablet 1 Tab PO DAILY 5 09/13/19 Rx Augmentin 500-125 Tablet (Amoxicillin/Potassium Clav) 1 Each Tablet 1 Tab PO BID 10 09/13/19 Rx Culturelle (Lactobacillus Rhamnosus Gg) 1 Each Cap.sprink 1 Cap PO BID 30 09/13/19 Rx Dok (Docusate Sodium) 100 Mg Capsule 100 Mg PO PRN BID PRN 30 09/13/19 Rx Bupropion Hcl Sr (Bupropion Hcl) 100 Mg Tablet.er 150 Mg PO BID 09/11/19 Reported Propranolol Hcl 80 Mg Cap.sa.24h 100 Mg PO DAILY 09/11/19 Reported Codeine-Guaifen 10-100 mg/5 ml (Guaifenesin/Codeine Phosphate) 120 Ml Liquid 10 Ml PO Q8HRS PRN 2/18/20 Rx Flomax (Tamsulosin Hcl) 0.4 Mg Cap.er.24h 1 Cap PO DAILY 08/06/19 Reported Zolpidem Tartrate 10 Mg Tablet 10 Mg PO QHS 08/06/19 Reported Diovan (Valsartan) 80 Mg Tablet 80 Mg PO DAILY 08/06/19 Reported Simvastatin 80 Mg Tablet 1 Tab PO QHS 30 08/06/19 Reported Hydrochlorothiazide Capsule (Hydrochlorothiazide) 12.5 Mg Capsule 12.5 Mg PO DAILY 08/06/19 Reported Glipizide Er (Glipizide) 5 Mg Tab.er.24 1 Tab PO DAILY 08/06/19 Reported Gabapentin 600 Mg Tablet 600 Mg PO TID 08/06/19 Reported Vitamin D-3 (Cholecalciferol (Vitamin D3)) 2,000 Unit Tablet 2,000 Unit PO DAILY 08/06/19 Reported Thera Tears (Carboxymethylcellulose Sodium) 1 Each Droperette 2 Drop EACHEYE QID 30 08/06/19 Reported Symbicort 160-4.5 Mcg Inhaler (Budesonide/Formoterol Fumarate) 10.2 Gm Hfa.aer.ad 2 Puff IH BID 08/06/19 Reported Aspirin Ec (Aspirin) 325 Mg Tablet.dr 1 Tab PO DAILY 08/06/19 Reported Albuterol Sulfate Neb Soln (Albuterol Sulfate) 0.63 Mg/3 Ml Vial.neb 0.63 Mg NEB PRN Q6HRS PRN 08/06/19 Reported Impression . IMPRESSION: 1. Acute hypoxemic respiratory failure due to ARDS, 2. Abnormal chest x-ray.SEC TO ACUTE LUNG INJURY 3. Pneumonia. 4. Atrial fibrillation with rapid ventricular response. 5. Chronic obstructive pulmonary disease. 6. Coronary artery disease. 7. Status post coronary artery bypass graft and aortic valve replacement. 8. History of hypertension. 9. Diabetes mellitus. 10. POSITIVE COVID 19 IMPRESSION: 1. Lines and tubes described above. 2. Persistent patchy bilateral airspace disease. Plan . SPOKE WITH WIDE PT HAD AN ADVANCE DIRECTIVE TO NOT PROLONG SUPPORT IF NO CHANGE OF RECOVERY WILL PROCEED WITH HONORING PT WISHES TO DC SUPPORT AND ALLOW NATURAL IF ANY DISTRESS WILL PROVIDE MORPHINE TEDDY Ball/ESTUARDO JONES RN, MD Oct 03, 2019 08:21
[2019-10-03] MEDS ORDERED: HYDROXYCHLOROQUINE 200 MG TABLET PO SCH (09:00)
[2019-10-03 09:01] LABS: BASE EXCESS ABG -7 mmol/L (-3-3); HCO3 ABG 19 mmol/L (21-28); PCO2 ABG 41 mmHg (35-46); PO2 ABG 82 mmHg (65-108); SAT O2 ABG 95 % (92-99)
[2019-10-03] MEDS: AZITHROMYCIN 500 MG in IV NORMAL SALINE 250ML 250 ML IV SCH (09:13)
[2019-10-03 10:03] LABS: FIO2 ABG 100 VENT
[2019-10-03] MEDS: DEXMEDETOMIDINE 400 MCG in IV NORMAL SALINE 100ML 96 ML IV PRN (10:27)
--- NOTE | 2019-10-03 11:05 | NUR ---
Patient's called this morning to see if she can come and see patient. This RN told that I would check and call her back. The answer was "No" as this time. Patient's told this RN, " I have talked to our primary DrJoaquin and he agrees that with my Juvenals history, he will not be as he was. Which was not well to begin with. 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 Melvin before deciding 100% to withdraw care. She asked what the rules are for her to be with patient while when care is withdrawn. La, ICU turn supervisor agreed to allow in facility with strict precautions, PPE outside before coming in facility. Addendum: 10/03/19 at 1317 by SHARAD KAUR RN Fentanyl was manually administered outside of patient's room due to patient is COVID-19 positive and co-signature was needed.
--- NOTE | 2019-10-03 11:46 | PDOC ---
[facility] PROGRESS NOTE Chief Complaint Chief Complaint Fulminant respiratory failure secondary to Covid 19 A. fib Pneumonia COPD CAD Hypertension Diabetes History of Present Illness History of Present Illness [id number] Patient seen and examined in the ICU I wore full protective gear Discussed with RN Chart reviewed He is extremely critically ill Currently 19 positive He is on 100% FiO2 assist control and 10 of PEEP Vitals/I&O Vitals/I&O: Vital Signs Date Time Temp Pulse Resp B/P (MAP) Pulse Ox O2 Delivery O2 Flow Rate FiO2 10/03/19 11:21 62 26 114/58 (76) 100 Ventilator 10/03/19 11:03 15.0 10/03/19 07:00 99.3 99.3 I & O 10/02/19 10/02/19 10/03/19 15:00 23:00 07:00 Intake Total 2997 ml 1110.5 ml Output Total 305 ml 265 ml 345 ml Balance -305 ml 2732 ml 765.5 ml Physical Exam Physical Exam: GENERAL: The patient is orally intubated and sedated with mittens in place. HEENT: Pupils are equally round and nonreactive. ETT and OGT in place. NECK: Supple. LUNGS: Coarse. HEART: S1 and S2 irregular. ABDOMEN: Soft and nontender. Hypoactive bowel sounds. GENITOURINARY: Indwelling Amor in place. EXTREMITIES: Trace edema. No cyanosis. SKIN: Warm to touch. No signs of rash. NEUROLOGIC: Unresponsive on sedation. General: moderate distress Lungs: Clear Abdomen: Normal bowel sounds, Soft, No tenderness, No hepatosplenomegaly, No masses Extremities: No clubbing, No cyanosis, No edema, Normal pulses, No tenderness/swelling Skin: No rashes, No breakdown, No significant lesion Labs Labs: Laboratory Tests Test 10/02/19 13:00 10/02/19 21:25 10/03/19 06:10 10/03/19 08:30 Urine Collection Type Unknown Urine Color Yellow Urine Clarity Hazy Urine pH 5.5 (<5.0-8.0) Urine Specific [place] >=1.030 (1.000-1.030) Urine Protein 100 mg/dL (NEG-TRACE) Urine Glucose (UA) Negative mg/dL (NEG) Urine Ketones (Stick) 15 mg/dL (NEG) Urine Blood Small (NEG) Urine Nitrite Negative (NEG) Urine Bilirubin Small (NEG) Urine Urobilinogen Dipstick 1.0 mg/dL (0.2 mg/dL) Urine Leukocyte Esterase Negative (NEG) Urine RBC 6-10 /HPF (0-2) Urine WBC 1-4 /HPF (0-4) Urine Squamous Epithelial Cells Occ /LPF Urine Renal Epithelial Cells Few /LPF Urine Amorphous Sediment Present /HPF Urine Bacteria Few /HPF (0-FEW) Urine Hyaline Casts Few /HPF Urine Granular Casts Few /HPF Urine Mucus Slight /LPF O2 Saturation 75 % (92-99) 95 % (92-99) Arterial Blood pH 7.26 (7.35-7.45) 7.28 (7.35-7.45) Arterial Blood pCO2 at Patient Temp 51 mmHg (35-46) 41 mmHg (35-46) Arterial Blood pO2 at Patient Temp 44 mmHg (65-108) 82 mmHg (65-108) Arterial Blood HCO3 22 mmol/L (21-28) 19 mmol/L (21-28) Arterial Blood Base Excess -5 mmol/L (-3-3) -7 mmol/L (-3-3) FiO2 100 100 vent White Blood Count 4.2 x10^3/uL (4.0-11.0) Red Blood Count 3.98 x10^6/uL (4.30-5.70) Hemoglobin 10.7 g/dL (13.0-17.5) Hematocrit 33.1 % (39.0-53.0) Mean Corpuscular Volume 83 fL (79-100) Mean Corpuscular Hemoglobin 27 pg (25-35) Mean Corpuscular Hemoglobin Concent 32 g/dL (31-37) Red Cell Distribution Width 16.3 % (11.5-14.5) Platelet Count 112 x10^3/uL (140-400) Neutrophils (%) (Auto) 90 % (31-73) Lymphocytes (%) (Auto) 6 % (24-48) Monocytes (%) (Auto) 3 % (0-9) Eosinophils (%) (Auto) 1 % (0-3) Basophils (%) (Auto) 0 % (0-3) Neutrophils # (Auto) 3.8 x10^3/uL (1.8-7.7) Lymphocytes # (Auto) 0.2 x10^3/uL (1.0-4.8) Monocytes # (Auto) 0.1 x10^3/uL (0.0-1.1) Eosinophils # (Auto) 0.0 x10^3/uL (0.0-0.7) Basophils # (Auto) 0.0 x10^3/uL (0.0-0.2) Sodium Level 135 mmol/L (136-145) Potassium Level 3.7 mmol/L (3.5-5.1) Chloride Level 102 mmol/L (98-107) Carbon Dioxide Level 24 mmol/L (21-32) Anion Gap 9 (6-14) Blood Urea Nitrogen 31 mg/dL (8-26) Creatinine 1.6 mg/dL (0.7-1.3) Estimated GFR (Cockcroft-Gault) 42.7 BUN/Creatinine Ratio 19 (6-20) Glucose Level 95 mg/dL (70-99) Calcium Level 7.7 mg/dL (8.5-10.1) Total Bilirubin 0.6 mg/dL (0.2-1.0) Aspartate Amino Transf (AST/SGOT) 76 U/L (15-37) Alanine Aminotransferase (ALT/SGPT) 114 U/L (16-63) Alkaline Phosphatase 106 U/L (46-116) Total Protein 5.0 g/dL (6.4-8.2) Albumin 1.6 g/dL (3.4-5.0) Albumin/Globulin Ratio 0.5 (1.0-1.7) Review of Systems Review of Systems: Unable to obtain Assessment and Plan Assessmemt and Plan Problems Medical Problems: (1) Sepsis Status: Acute (2) Suspected 2019 novel coronavirus infection Status: Acut Covid 19 Sepsis Acute hypoxemic respiratory failure - appears to be 2/2 ARDS, HCAP pneumonia, likely SARS-CoV-2 as well Atrial fibrillation with rapid ventricular response - diltiazem gtt. Cardiology consultation was ordered. I have requested only essential physicians to direct care physically examine, they will consult without contact Pneumonia - HCAP Chronic obstructive pulmonary disease - in acute exacerbation - Titrate FiO2 to keep O2 saturation 94%. cont vent support, on peep 10, Fio2 100%. We will repeat ABG. Change vent setting per ABG. Coronary artery disease - Status post coronary artery bypass graft and aortic valve replacement. As above with cardiology following with telephone consultation due to COVID19 isolation Hypertension. Diabetes mellitus - q6 hour sliding scale Continue mechanical ventilation Hope to ween but he is critically ill Prognosis extremely guarded at best I'm concerned he may not survive Total time 33 minutes Comment Review of Relevant I have reviewed the following items norm (where applicable) has been applied. Medications: Current Medications Medications (Trade) Dose Ordered Sig/Magdalena Route PRN Reason Start Time Stop Time Status Last Admin Dose Admin Vancomycin HCl 1.5 gm/Sodium Chloride 500 ml @ 250 mls/hr Q12H IV 10/02/19 19:00 10/03/19 07:54 Meropenem 500 mg/ Sodium Chloride 50 ml @ 100 mls/hr Q6HRS IV 10/02/19 12:00 10/03/19 05:59 Azithromycin 500 mg/Sodium Chloride 250 ml @ 250 mls/hr DAILY IV 10/02/19 12:00 10/05/19 11:59 10/03/19 09:13 Hydroxychloroquine Sulfate (Plaquenil) 400 mg BID PO 10/02/19 12:00 10/02/19 21:01 DC 10/02/19 23:07 Hydroxychloroquine Sulfate (Plaquenil) 200 mg BID PO 10/03/19 09:00 10/06/19 21:01 10/03/19 09:14 Micafungin Sodium 100 mg/Dextrose 100 ml @ 100 mls/hr Q24H IV 10/02/19 12:00 10/02/19 12:31 Dexmedetomidine HCl 400 mcg/ Sodium Chloride 100 ml @ 0 mls/hr CONT PRN IV SEDATION 10/02/19 22:00 10/03/19 10:27 GALEN DUMONT III DO Oct 03, 2019 11:46
[2019-10-03] MEDS: MICAFUNGIN 100 MG in IV DEXTROSE 5% 100ML 100 ML IV SCH (12:22)
--- NOTE | 2019-10-03 14:48 | PDOC ---
KAYLEE GONZALES CAR SALES CONSULTANT 10/03/19 1448: CARDIO Progress Notes Date and Time Date of Service 10/03/19 Time of Evaluation 1310 Subjective Subjective: No Chest Pain, No shortness of breath Vitals Vitals Vital Signs Date Time Temp Pulse Resp B/P (MAP) Pulse Ox O2 Delivery O2 Flow Rate FiO2 10/03/19 14:27 73 26 119/63 (81) 100 Ventilator 10/03/19 12:00 100.1 100.1 10/03/19 11:33 15.0 Weight Weight [ ] Input and Output Intake and Output Intake and Output 10/03/19 07:00 Intake Total 4107.5 ml Output Total 915 ml Balance 3192.5 ml Intake Oral 0 ml IV Total 1510.5 ml Other 2597 ml Output Urine Total 915 ml Laboratory Labs Laboratory Tests Test 10/02/19 21:25 10/03/19 06:10 10/03/19 08:30 O2 Saturation 75 % (92-99) 95 % (92-99) Arterial Blood pH 7.26 (7.35-7.45) 7.28 (7.35-7.45) Arterial Blood pCO2 at Patient Temp 51 mmHg (35-46) 41 mmHg (35-46) Arterial Blood pO2 at Patient Temp 44 mmHg (65-108) 82 mmHg (65-108) Arterial Blood HCO3 22 mmol/L (21-28) 19 mmol/L (21-28) Arterial Blood Base Excess -5 mmol/L (-3-3) -7 mmol/L (-3-3) FiO2 100 100 vent White Blood Count 4.2 x10^3/uL (4.0-11.0) Red Blood Count 3.98 x10^6/uL (4.30-5.70) Hemoglobin 10.7 g/dL (13.0-17.5) Hematocrit 33.1 % (39.0-53.0) Mean Corpuscular Volume 83 fL (79-100) Mean Corpuscular Hemoglobin 27 pg (25-35) Mean Corpuscular Hemoglobin Concent 32 g/dL (31-37) Red Cell Distribution Width 16.3 % (11.5-14.5) Platelet Count 112 x10^3/uL (140-400) Neutrophils (%) (Auto) 90 % (31-73) Lymphocytes (%) (Auto) 6 % (24-48) Monocytes (%) (Auto) 3 % (0-9) Eosinophils (%) (Auto) 1 % (0-3) Basophils (%) (Auto) 0 % (0-3) Neutrophils # (Auto) 3.8 x10^3/uL (1.8-7.7) Lymphocytes # (Auto) 0.2 x10^3/uL (1.0-4.8) Monocytes # (Auto) 0.1 x10^3/uL (0.0-1.1) Eosinophils # (Auto) 0.0 x10^3/uL (0.0-0.7) Basophils # (Auto) 0.0 x10^3/uL (0.0-0.2) Sodium Level 135 mmol/L (136-145) Potassium Level 3.7 mmol/L (3.5-5.1) Chloride Level 102 mmol/L (98-107) Carbon Dioxide Level 24 mmol/L (21-32) Anion Gap 9 (6-14) Blood Urea Nitrogen 31 mg/dL (8-26) Creatinine 1.6 mg/dL (0.7-1.3) Estimated GFR (Cockcroft-Gault) 42.7 BUN/Creatinine Ratio 19 (6-20) Glucose Level 95 mg/dL (70-99) Calcium Level 7.7 mg/dL (8.5-10.1) Total Bilirubin 0.6 mg/dL (0.2-1.0) Aspartate Amino Transf (AST/SGOT) 76 U/L (15-37) Alanine Aminotransferase (ALT/SGPT) 114 U/L (16-63) Alkaline Phosphatase 106 U/L (46-116) Total Protein 5.0 g/dL (6.4-8.2) Albumin 1.6 g/dL (3.4-5.0) Albumin/Globulin Ratio 0.5 (1.0-1.7) Microbiology Micro Microbiology 10/02/19 Blood Culture - Preliminary, Resulted NO GROWTH AFTER 1 DAY Physical Exam Other Exams Exam deferred Assessment Assessment 1. Acute respiratory failure in setting of AECOPD, PNA, COVID; s/p intubation 2. PAFIB with RVR; in setting of above. Back in SR. 3. Mild troponin elevation; type II, demand ischemia secondary to above. 4. CAD s/p CABG 5. Valvular disease S/p bioprosthetic AVR, normal function per recent echo 6. Hypertension, hypotensive; pressor support 7. Hyperlipidemia 8. Diabetes, II 9. SOUTH 10. Elevated LFTs Recommendations Secondary prevention measures. Continue pressors and tx of sepsis Supportive care from CV standpoint. EYAD BEAR MD 10/04/19 1038: CARDIO Progress Notes Assessment Assessment Patient seen and examined 10/03/19. Agree with DEVULCANIZER OPERATOR's assessment and plan. Remains intubated and needing pressor support. CAD, AVR status clinically stable. Overall poor prognosis. Family considering withdrawal of care. KAYLEE GONZALES APRN Oct 03, 2019 14:48 EYAD BEAR MD Oct 04, 2019 10:38
--- NOTE | 2019-10-03 15:32 | NUR ---
SS following for discharge planning. SS reviewed pt chart and discussed with RNFaith. Pt is from home and is currently on the vent. Pt positive for COVID19. SS will continue to follow for discharge planning.
[2019-10-03] MEDS ORDERED: MORPHINE SULFATE 4 MG/ML VIAL. IV PRN (17:30)
[2019-10-03] MEDS ORDERED: SODIUM BICARB ADULT 8.4% 50 MEQ/50 ML DISP.SYRIN. ONE (18:00)
[2019-10-03] MEDS ORDERED: AZITHROMYCIN 250 MG in IV NORMAL SALINE 250ML 250 ML IV SCH (18:15)
--- NOTE | 2019-10-03 18:50 | NUR ---
Patient's has made the decision to withdraw care. La, in class special education teacher, agreed to allow to be with patient during this time. This RN met patient in the parking lot, made sure she had the correct mask on before entering the hospital. This RN escorted into patient's room, where she is staying. Patient's body was to be donated to [email or web address]. This RN called [email or web address] and they informed us that they are not accepting anybody who is positive for COVID-19. [facility] and [facility]. This RN notified the nursing landscaping supervisor of the plan.
--- NOTE | 2019-10-03 20:00 | NUR ---
Patient terminally extubated at 1999 with RN Aleena Choudhury and patient's at bedside.
--- NOTE | 2019-10-03 21:00 | NUR ---
PATIENT'S NILDA WOULD LIKE TO WITHDRAW CARE AND PROVIDE COMFORT MEASURES. PATIENT ON CONTINUOUS SEDATION, MORPHINE GIVEN FOR POSSIBLE AIR HUNGER. EXTUBATED WITHOUT DIFFICULTY. NASIRRT PRESENT. PATIENT REMAINED UNRESPONSIVE APNEIC. ASYSTOLE IN 2 LEADS. PATIENT PRONOUNCED AT 2024H. ROBERT CASTILLO VERIFIED. NO BREATH SOUNDS OR CHEST RISE. AUSCULTATED HEART SOUNDS X1 MINUTE. NO HEART TONES. DENTON NOTIFIED OF . NOT A CANDIDATE. MESSAGE LEFT WITH ANSWERING SERVICE AND DR. ALMEIDA PAGED VIA MOBILE PAGER. ACCOMPANIED PATIENT'S OUT OF BUILDING. PATIENT LEFT PREMISES. ADVISED TO PLACE N95 MASK IN A BAG AND THROW AWAY.
--- NOTE | 2019-10-03 23:28 | DS ---
DATE OF DISCHARGE: 10/03/2019 ADMISSION DIAGNOSES: Respiratory failure secondary to severe pneumonia with coronavirus disease-19 positive testing. CAUSE OF : Progression of disease with fulminant respiratory failure secondary to COVID-19. HOSPITAL COURSE: The patient is a pleasant 74-year-old male who was admitted last night with respiratory failure. He was admitted to the ICU on the vent. He was COVID-19 positive. We did go ahead and treat with hydroxychloroquine and azithromycin and consulted Pulmonary and Infectious Disease. Today, I saw and examined him, he was on 100% FiO2 with 10 of PEEP, was critically ill this afternoon. I was notified by the nurses that he had . GALEN DUMONT DO DR: SHELBY/ysabel JOB#: [id number] / [id number]
== END 2019-10-03 23:24 | disposition expired | DRG 871 ==
LOC: ER 03:57 → 1 WEST ICU 06:11
PROVIDERS: ADMIT Family Medicine; ATTEND Family Medicine
PROC: 0BH17EZ Insertion of Endotracheal Airway into Trachea, Via Natural or Artificial Opening (ICD-10-PCS; principal; 2019-10-02)
PROC: 5A1935Z Respiratory Ventilation, Less than 24 Consecutive Hours (ICD-10-PCS; 2019-10-02)
PROC: 02HV33Z Insertion of Infusion Device into Superior Vena Cava, Percutaneous Approach (ICD-10-PCS; 2019-10-02)
DX: A41.9 Sepsis, unspecified organism (principal); J80 Acute respiratory distress syndrome; R65.21 Severe sepsis with septic shock; J12.81 Pneumonia due to SARS-associated coronavirus; I24.8 Other forms of acute ischemic heart disease; J44.0 Chronic obstructive pulmonary disease with (acute) lower respiratory infection; J44.1 Chronic obstructive pulmonary disease with (acute) exacerbation; J98.11 Atelectasis; J90 Pleural effusion, not elsewhere classified; N17.9 Acute kidney failure, unspecified; E11.9 Type 2 diabetes mellitus without complications; E78.5 Hyperlipidemia, unspecified; E78.00 Pure hypercholesterolemia, unspecified; I10 Essential (primary) hypertension; I25.10 Atherosclerotic heart disease of native coronary artery without angina pectoris; I35.0 Nonrheumatic aortic (valve) stenosis; I48.91 Unspecified atrial fibrillation; I25.2 Old myocardial infarction; Z66 Do not resuscitate; Y95 Nosocomial condition; Z82.49 Family history of ischemic heart disease and other diseases of the circulatory system; Z80.1 Family history of malignant neoplasm of trachea, bronchus and lung; Z87.19 Personal history of other diseases of the digestive system; Z95.1 Presence of aortocoronary bypass graft; Z87.891 Personal history of nicotine dependence; Z82.5 Family history of asthma and other chronic lower respiratory diseases; Z95.3 Presence of xenogenic heart valve; B97.29 Other coronavirus as the cause of diseases classified elsewhere; F32.9 Major depressive disorder, single episode, unspecified; M19.90 Unspecified osteoarthritis, unspecified site
CPT/HCPCS: 36415; 36556; 36600; 71045; 80053; 81001; 82805; 83605; 84145; 84484; 85007; 85025; 85384; 85610; 86738; 87040; 87070; 87205; 87449; 93005; 94002; 94003; 94640; 96365; 96366; 96368; 96375; 99291; C9113; J0456; J1956; J2185; J2248; J2250; J2270; J2543; J3010; J3370; J3490; J7030; J7040; J7050; J7060; J7644; G0378